=== PATIENT | female | born 1970 | race Caucasian/White ===

== ENCOUNTER 2020-03-13 11:22 | Emergency (ER) | payer BC, OTHER ==
[~2020-03-13] VITALS: Ht 170.2 cm; Wt 68.9 kg
[~2020-03-13 11:22] MED LIST: GLUCOPHAGE500 MG PO; LAMICTAL100 MG PO; LEXAPRO PO; METOPROLOL TART25 MG PO
--- OUTSIDE RECORDS SUMMARY | 2020-03-13 12:07 | XMS REPORT | Continuity of Care Document ---
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 Phone [employer] Unavailable Un available Problems Problem Status Onset Date Classification Date Reported Comments Source Other specified disorders of bone, other site 05/03/2018 11/14/2018 [facility] DX: FRONTAL HAIRLINE NODULE Ac tive 04/21/2018 [facility] Unilateral primary osteoarthritis, right knee 06/25/2017 09/28/2017 [facility] [place] RIGHT KNEE Active 03/03/2017 [facility] [place] UNK Active 0 02/25/2017 [facility] ACUTE MENISCAL TEAR, MEDIAL Ac tive 12/17/2011 [facility] Stiffness of right knee, not elsewhere classified 09/28/2017 [facility] [place] Pain in right knee 09/28/2017 [facility] [place] Muscle weakness (generalized) 09/28/2017 [facility] [place] Unspecified abnormalities of gait and mobility 09/28/2017 [facility] [place] Unsteadiness on feet 09/28/2017 [facility] Chondromalacia patellae, right knee 09/28/2017 [facility] [place] Anxiety (finding) Active Problem 11/14/2018 [facility] [place] Gastroesophageal reflux disease (disorder) Active Problem 11/14/2018 [facility] [place] Depressive disorder (disorder) Active Problem 04/2019 [facility] [place] Medications Medication Details Route Status Patient Instructions Ordering Provider Order Date Source Ketorolac 15 mg, Route: IVP, Q 6H, Dosing Weight 66.364, kg, Start date: 03/03/17 18:00:00 CDT, Duration: 6 doses or times, Stop date: 03/05/17 0:00:00 CDT Inactive 03/03/2017 [facility] Oxycodone Hydrochloride 5 MG Oral Tablet 10 mg, Route: PO, Drug form: TAB, ONCE, Dosing Weight 66.364, kg, PRN Pain Score 7-10, Start date: 03/03/17 14:00:00 CDT Inactive 03/03/2017 [facility] Oxycodone Hydrochloride 5 MG Oral Tablet 10 mg, Route: PO, Drug form: TAB, ONCE, Dosing Weight 66.364, kg, PRN Pain Score 7-10, Start date: 03/03/17 13:44:00 CDT Inactive 03/03/2017 [facility] Phenergan 12.5 mg, Route: IVPB , Q4H, Dosing Weight 66.364, kg, PRN Nausea & Vomiting, Start date: 03/03/17 12:02:00 CDT, Duration: 30 day, Stop date: 04/02/17 12:01:00 CDT Inactive 03/03/2017 [facility] Hydromorphone 0.3 mg, Route: I RADIOLOGY SUPERVISOR, Q3H, Dosing Weight 66.364, kg, PRN Pain Score 4-6, Start date: 03/03/17 12:02:00 CDT, Duration: 30 day, Stop date: 04/02/17 12:01:00 CDT Inactive 03/03/2017 [facility] Morphine 2 mg, Route: IVP, Q3H , Dosing Weight 66.364, kg, PRN Pain Score 1-3, Start date: 03/03/17 12:02:00 CDT, Duration: 30 day, Stop date: 04/02/17 12:01:00 CDT Inactive 03/03/2017 [facility] Acetaminophen 325 MG / Hydrocodone Jeremiah trate 5 MG Oral Tablet Route: PO, Dosing Weight 66.364, kg, Q4H , PRN Pain Score 4-6, Start date: 03/03/17 12:02:00 CDT, Duration: 30 day, Stop date: 04/02/17 12:01:00 CDT Inactive 03/03/2017 [facility] Tramadol 50 mg, Route: PO, Torin g form: TAB, Q6H, Dosing Weight 66.364, kg, PRN Pain Score 1-3, Start date: 03/03/17 12:02:00 CDT, Duration: 30 day, Stop date: 04/02/17 12:01:00 CDT Inactive 03/03/2017 [facility] 72 HR Scopolamine 0.0139 MG/HR Transdermal Patch 1 patch, Route: TOP, Drug Form: ERFILM, Dosing Weight 66.364, kg, PRE OP, Start date: 03/03/17 11:00:00 CDT, Duration: 30 day, Stop date: 04/02/17 10:59:00 CDT Inactive 03/03/2017 [facility] Albuterol 0.833 MG/ML / Ipratropium Brom nuno 0.167 MG/ML Inhalant Solution 3 mL, Route: NEB, Dosing Weight 66.364, kg, ONCE, STAT, Start date: 03/03/17 10:03:00 CDT, Stop date: 03/03/17 10:03:00 CDT Inactive 03/03/2017 [facility] Calcium Chloride 0.0014 MEQ/ML / Potassi um Chloride 0.004 MEQ/ML / Sodium Chloride 0.103 MEQ/ML / Sodium Lactate 0.028 MEQ/ML Injectable Solution 1,000 mL, Rate: 25 ml/hr, Infuse over: 4 0 hr, Route: IV, Dosing Weight 66.364 kg, Total Volume: 1,000, Start date: 03/03/17 10:03:00 CDT, Duration: 30 day, Stop date: 04/02/17 10:02:00 CDT Inactive 03/03/2017 [facility] clindamycin 300 mg oral capsule 600 mg = 2 cap, PO, TID, X 14 day, # 84 cap, 0 Refill(s) Active 03/03/2017 [facility] Sucralfate 100 MG/ML Oral Suspension [Carafate] 1 gm = 10 mL, PO, QID-Before Meals, 0 Refill(s) Active 03/02/2017 [facility] Metformin hydrochloride 1000 MG Oral Tablet 1,000 mg = 1 tab, PO, BID, 0 Refill(s) Active 03/02/2017 [facility] lamotrigine 100 MG Oral Tablet [Lamictal] 100 mg = 1 tab, PO, BID, 0 Refill(s) Active 03/02/2017 [facility] rOPINIRole 4 mg oral tablet 4 mg = 1 tab, PO, Bedtime, 0 Refill(s) Active 03/02/2017 [facility] Acyclovir 400 MG Oral Tablet [Zovirax] 400 mg = 1 tab, PO, Daily, 0 Refill(s) Active 03/02/2017 [facility] Escitalopram 20 MG Oral Tablet [Lexapro] 40 mg = 2 tab, PO, Daily, 0 Refill(s) Active 03/02/2017 [facility] Allergies, Adverse Reactions, Alerts Substance Category Reaction Severity Reaction type Status Date Reported Comments Source penicillins Assertion Drug allergy Active [facility] codeine Assertion Drug allergy Active [facility] Immunizations No Data Provided for This Section Results Order Name Results Value Reference Range Date Interpretation Comments Source ELECTROLYTES AGAP 11.3 10.0 - 20.0 03/02/2017 [facility] ELECTROLYTES eGFR 105 03/02/2017 Result Comment: The eGFR is calculated using the CKD-EPI formula. In most young, healthy individuals the eGFR will be >90 mL/min/1.73m2. The eGFR declines with age. An eGFR of 60-89 may be normal in some populations, particularly the elderly, for whom the CKD-EPI formula has not been extensively validated. Use of the eGFR is not recommended in the following populations:

Individuals with unstable creatinine concentrations, including patients and those with serious co-morbid conditions.

Patients with extremes in muscle mass or diet.

The data above are obtained from the National Kidney Disease Education Program (NKDEP) which additionally recommends that when the eGFR is used in patients with extremes of body mass index for purposes of drug dosing, the eGFR should be multiplied by the estimated BMI. [facility] ELECTROLYTES Chloride Lvl 107 95 - 109 03/02/2017 [facility] ELECTROLYTES Potassium Lvl 4.3 3.5 - 5.1 03/02/2017 [facility] ELECTROLYTES CO2 30 24 - 32 03/02/2017 [facility] ELECTROLYTES Calcium Lvl 9.2 8.5 - 10.5 03/02/2017 [facility] ELECTROLYTES BUN 19 7 - 22 03/02/2017 [facility] ELECTROLYTES Glucose Lvl 117 70 - 99 03/02/2017 [facility] ELECTROLYTES Sodium Lvl 144 135 - 145 03/02/2017 [facility] ELECTROLYTES Creatinine Lvl 0.7 0 0.50 - 1.40 03/02/2017 [facility] HEMATOLOGY MPV 7.4 7.4 - 10.4 03/02/2017 [facility] HEMATOLOGY Platelet 316 133 - 450 03/02/2017 [facility] HEMATOLOGY MCH 29.6 27.0 - 31.0 03/02/2017 [facility] HEMATOLOGY RDW 17.2 11.5 - 14.5 03/02/2017 [facility] HEMATOLOGY MCHC 32.7 32.0 - 36.0 03/02/2017 [facility] MCV 90.5 80.0 - 98.0 03/02/2017 [facility] Hct 35.9 36.0 - 48.0 03/02/2017 [facility] Hgb 11.7 12.0 - 16.0 03/02/2017 [facility] RBC 3.97 4.20 - 5.40 03/02/2017 [facility] WBC 6.2 3.7 - 10.4 03/02/2017 [facility] Eosinophils # 0.2 0.0 - 0.5 03/02/2017 [facility] HEMATOLOGY Basophils 0.7 0.0 - 1.0 03/02/2017 [facility] Monocytes # 0.6 0.0 - 0.8 03/02/2017 [facility] Eosinophils 3.7 0.0 - 4.0 03/02/2017 [facility] Monocytes 9.2 2.0 - 12.0 03/02/2017 [facility] Lymphocytes # 2.1 1.0 - 5.5 03/02/2017 [facility] Segs-Bands # 3.2 1.5 - 8.1 03/02/2017 [facility] Lymphocytes 34.4 20.0 - 40.0 03/02/2017 [facility] Segs 52.0 45.0 - 75.0 03/02/2017 [facility] Pathology Reports No Data Provided for This Section Diagnostic Reports Report Value Date Source Brain wo contrast CT Clinical Indication: - rt fontal hairline nodule r/o osteoma vs cyst vs lipoma vs other History (specific to the exam):knot or mass on her forehead that the Dr. is checking to see what it is, biopsy was done on that area Comparison: No prior relevant comparison study available at this institution at this time. TECHNIQUE: CT images were obtained from the foramen magnum to the vertex without the use of intravenous contrast on a multidetector CT. Coronal and sagittal reconstructions were obtained. CT imaging performed at this location utilizes radiation dose optimization techniques which include one or more of the following: -Automated exposure control -Adjustment of the mA and/or kV accordin g to patient size -Use of iterative reconstruction Therasis ue CT Radiation Dose DLP 673 mGy-cm FINDINGS: BRAIN PARENCHYMA and VENTRICLES: There are no intra-axial or extra-axial fluid collections, intraventricular or intraparenchymal hemorrhage. There are no focal mass lesions on this noncontrast head CT. There is no mass effect, midline shift or edema. The muñoz-white matter differentiation is preserved. The midline structures appear unremarkable. The lateral ventricles, third and fourth ventricles appear unremarkable. The basilar cisterns are normal. Partially empty sella, a nonspecific finding. ORBITS, MASTOIDS AND PARANASAL SINUSES: The visualized orbits are unremarkable. The visualized paranasal sinuses and mastoid air cells are clear. SKULL: Tiny osseous protuberance along the outer table of the frontal bone in the right para-midline location at the marked site measuring approximately 2.5 x 7.5 x 7 mm likely represents an osteoma. No acute calvarial fracture or focal suspicious osseous lesions are identified. If there is further concern for intracranial pathology or acute stroke, MRI of the brain may be performed for complete assessment. IMPRESSION: No evidence of acute intracranial abnormality or calvarial fracture. Tiny osseous protuberance along the outer table of the frontal bone in the right para-midline location likely represents an osteoma. ----- STEPHY: GVIJLinda 04/26/2018 [facility] Consultation Notes No Data Provided for This Section Discharge Summaries No Data Provided for This Section History and Physicals No Data Provided for This Section Vital Signs Vital Sign Value Date Comments Source Systolic (mm Hg) 105 03/03/2017 [facility] Diastolic (mm Hg) 62 03/03/2017 [facility] Systolic (mm Hg) 112 03/03/2017 [facility] Diastolic (mm Hg) 65 03/03/2017 [facility] Systolic (mm Hg) 119 03/03/2017 [facility] Diastolic (mm Hg) 65 03/03/2017 [facility] Respitory Rate 8 03/03/2017 [facility] Respitory Rate 15 03/03/2017 [facility] Respitory Rate 7 03/03/2017 [facility] Heart Rate 82 03/03/2017 [facility] Temperature Oral (F) 98.2 F 03/02/2017 [facility] Heart Rate 82 03/02/2017 [facility] Weight 66.364 03/02/2017 [facility] BMI Calculated 26.76 03/02/2017 [facility] Height 157.48 cm 03/02/2017 [facility] Encounters Location Location Details Encounter Type Encounter Number Reason For Visit Attending Provider ADM Date DC Date Status Source [facility] Outpatient [id number] ACUTE MENISCAL TE AR, MEDIAL KHANG SAM 12/21/2011 Active [facility] [id number] Khang Sam 03/03/2017 03/03/2017 [facility] [place] [facility] [id number] Khang Sam 03/17/2017 04/16/2017 [facility] [place] [facility] [place] [facility] [id number] Khang Sam 04/21/2017 05/21/2017 [facility] [place] [facility] [place] [facility] [id number] Khang Sam 05/24/2017 06/23/2017 [facility] [place] [facility] Out[facility] [id number] Bulmaro Mcqueenikh 04/26/2018 04/27/2018 [facility] Procedures Procedure Code Date Perfomer Comments Source Cholecystectomy<sup>1</sup> [id number] [facility] [place] Colonoscopy<sup>2</sup> 190175 2015; 2016 [facility] [place] Esophagogastroduodenoscopy<sup>3</sup> [id number] 2015; 2016 [facility] [place] Oophorectomy<sup>4</sup> 42103 002 2001 [facility] [place] Operation<sup>5</sup> [id number] plate and screws; 2013 [facility] [place] Operation<sup>6</sup> [id number] 2000 [facility] [place] Operation<sup>7</sup> [id number] 2007 [facility] [place] Assessment and Plan No Data Provided for This Section Plan of Care No Data Provided for This Section Social History Social History Date Source Social History TypeResponse Substance Abuse Use: None. Alcohol Never Smoking Status Never smoker; Exposure to Tobacco Smoke None; Cigarette Smoking Last 365 Days No; Reg Smoking Cessation Counseling No entered on: 03/02/17 03/02/2017 [facility] [place] Social History TypeResponse Substance Abuse Use: None. Alcohol Never Smoking Status Never smoker; Exposure to Tobacco Smoke None; Cigarette Smoking Last 365 Days No; Reg Smoking Cessation Counseling No entered on: 03/02/17 03/02/2017 [facility] Family History No Data Provided for This Section Advance Directives No Data Provided for This Section Functional Status No Data Provided for This Section
--- OUTSIDE RECORDS SUMMARY | 2020-03-13 12:07 | XMS REPORT | Continuity of Care Document ---
Author Author [facility] Organization [facility] Address [address] [place] [address] Phone Unavailable Care Team Providers Care Sewer Line Repairer Name Role Phone Holcomb, Raankitasimon Bulmaro Attphys Caleb Man Attphys Payers Payer Name Policy Type Policy Number Effective Date Expiration Date S ource Problems Condition Name Condition Details Condition Category Status Onset Date Resolution Date Last Treatment Date Treating Clinician Comments Source DX: FRONTAL HAIRLINE NODULE DX : FRONTAL HAIRLINE NODULE Active 04/21/2018 [facility] Active 2018-04-21 00:00:00 2018-04-26 13:02:00 Ela Del Castillo RIGHT KNEE RIGH T KNEE Active 03/03/2017 [facility] Active 2017-03-03 08:00:00 2017-05-24 17:24:00 Ela Del Castillo UNK UNK Active 02/25/2017 [facility] Active 2017-02-25 00:00:00 2017-03-03 09:23:00 M masonpremamee Del Castillo ACUTE MENISCAL TEAR, MEDIAL AC NATO MENISCAL TEAR, MEDIAL Active 12/17/2011 [facility] Diagnosis Active 2011-12-17 00:00:00 2011-12-21 18:47:00 [facility] Stiffness of right knee, not elsewhere classified Stiffness of right knee, not elsewhere classified 09/28/2017 [facility] [place] Problem 2017-09-28 14:23:44 [facility] Pain in right knee Pain in right knee 09/28/2017 [facility] Problem 2017-09-28 14:23:44 [facility] Muscle weakness (generalized) Muscle weakness (generalized) 09/28/2017 [facility] Problem 2017-09 14:23:44 [facility] Unspecified abnormalities of gait and mobility Unspecified abnormalities of gait and mobility 09/28/2017 [facility] Problem 2017-09-28 14:23:44 [facility] Unsteadiness on feet Unst eadiness on feet 09/28/2017 [facility] Problem 2017-09-28 14:23:44 [facility] Chondromalacia patellae, right knee Chondromalacia patellae, right knee 09/28/2017 [facility] [place] Problem 2017-09-28 14:23:44 [facility] Anxiety (finding) Anxi ety (finding) Active Problem 11/14/2018 [facility] [place] Problem Active 2018-11-14 11:1 3:22 [facility] Gastroesophageal reflux disease (disorder) Gastroesophageal reflux disease (disorder) Active Problem [facility]14[facility]2018 [facility] Active 2018-11-14 11:13:22 [facility] Depressive disorder (disorder) Depressive disorder (disorder) Active Problem 11/14/2018 [facility] Active 2018-11-14 11:13:22 [facility] Other specified disorders of bone, other site Other specified disorders of bone, other site 05/03/2018 11/14/2018 [facility] Problem 2018-05-03 04:19:57 2018-11-14 11:13:22 2018-11-14 11:13:22 [facility] Unilateral primary osteoarthritis, right knee Unilateral primary osteoarthritis, right knee 06/25/2017 09/28/2017 [facility] Problem 2017-06-25 05:59:29 2017-09-28 14:23:44 2017-09-28 14:23:44 Ela Del Castillo Allergies, Adverse Reactions, Alerts Allergy Name Allergy Type Status Severity Reaction(s) Onset Date Inacti ve Date Treating Clinician Comments Source codeine DA Active SV 2018-02-23 00:00:00 [facility] codeine DA Active SV 2018-02-17 00:00:00 [facility] codeine DA Active SV 2015-06-17 00:00:00 [facility] EGGS DA Active U 2008-04-29 00:00:00 [facility] MILK DA Active U 2008-04-29 00:00:00 [facility] No Known Contrast Allergies DA Active U 2008-04-29 00:00: 00 [facility] WHEAT DA Active U 2008-04-29 00:00:00 [facility] CODEINE DA Active U 2008-04-29 00:00:00 [facility] penicillins penicillins Active Ela Del Castillo codeine codeine Active Ela Del Castillo Social History Social Habit Start Date Stop Date Quantity Comments Source Social History 2017-03-02 13:31:10 2017-03-02 13:31:10 Ela Del Castillo Medications Ordered Medication Name Filled Medication Name Start Date Stop Da te Current Medication? Ordering Clinician Indication Dosage Frequency Signature (SIG) Comments Components Source Ketorolac 2017-03-03 23:00:00 No 15 mg, Route: IVP, Q6H, Dosing Weight 66.364, kg, Start date: 03/03/17 18:00:00 CDT, Duration: 6 doses or times, Stop date: 03/05/17 0:00:00 CDT M masonriamee Del Castillo Oxycodone Hydrochloride 5 MG Oral Tablet 2017-03-03 19:00:00 No 10 mg, Route: PO, Drug form: TAB, ONCE, Dosing Weight 66.364, kg, PRN Pain Score 7- 10, Start date: 03/03/17 14:00:00 CDT moriamee Del Castillo Oxycodone Hydrochloride 5 MG Oral Tablet 2017-03-03 18:44:00 No 10 mg, Route: PO, Drug form: TAB, ONCE, Dosing Weight 66.364, kg, PRN Pain Score 7- 10, Start date: 03/03/17 13:44:00 CDT De yani Del Castillo Phenergan 2017-03-03 17:02:00 No 12.5 mg, Route: IVPB, Q4H, Dosing Weight 66.364, kg, PRN Nausea & Vomiting, Start date: 03/03/17 12:02:00 CDT, Duration: 30 day, Stop date: 04/02/17 12:01:00 CDT [facility] Hydromorphone 2017-03-03 17:02:00 No 0.3 mg, Route: IVP, Q3H, Dosing Weight 66.364, kg, PRN Pain Score 4-6, Start date: 03/03/17 12:02:00 CDT, Duration: 30 day, Stop date: 04/02/17 12:01:00 CDT [facility] Morphine 2017-03-03 17:02:00 No 2 mg, Route: IVP, Q3H, Dosing Weight 66.364, kg, PRN Pain Score 1-3, Start date: 03/03/17 12:02:00 CDT, Duration: 30 day, Stop date: 04/02/17 12:01:00 CDT [facility] [address] Acetaminophen 325 MG / Hydrocodone Bitartrate 5 MG Oral Tabl et 2017-03-03 17:02:00 No Route: PO, Dosing Weight 66.364, kg, Q4H, PRN Pain Score 4-6, Start date: 03/03/17 12:02:00 CDT, Duration: 30 day, Stop date: 04/02/17 12:01:00 CDT [facility] Tramadol 2017-03-03 17:02:00 No 50 mg, Route: PO, Drug form: TAB, Q6H, Dosing Weight 66.364, kg, PRN Pain Score 1-3, Start date: 03/03/17 12:02:00 CDT, Duration: 30 day, Stop date: 04/02/17 12:01:00 CDT [facility] 72 HR Scopolamine 0.0139 MG/HR Transdermal Patch 2017-03-03 16:0 0:00 No 1 patch, Route: TOP, Drug Fo rm: ERFILM, Dosing Weight 66.364, kg, PRE OP, Start date: 03/03/17 11:00:00 CDT, Duration: 30 day, Stop date: 04/02/17 10:59:00 CDT Ela Del Castillo Albuterol 0.833 MG/ML / Ipratropium [place] 0.167 MG/ML Inha lant Solution 2017-03-03 15:03:00 Yes 3 mL, Route: NEB, Dosing Weight 66.364, kg, ONCE, STAT, Start date: 03/03/17 10:03:00 CDT, Stop date: 03/03/17 10:03:00 CDT Ela Del Castillo Calcium Chloride 0.0014 MEQ/ML / Potassi um Chloride 0.004 MEQ/ML / Sodium Chloride 0.103 MEQ/ML / Sodium Lactate 0.028 MEQ/ML Injectable Solution 2017-03-03 15:03:00 No 1,000 mL, Rate: 25 ml/hr, Infuse over: 40 hr, Route: IV, Dosing Weight 66.364 kg, Total Volume: 1,000, Start date: 03/03/17 10:03:00 CDT, Duration: 30 day, Stop date: 04/02/17 10:02:00 CDT Ela Del Castillo clindamycin 300 mg oral capsule 2017-03-03 02:35:00 Yes 600 mg = 2 cap, PO, TID, X 14 day, # 84 cap, 0 Refill(s) Ela Del Castillo Sucralfate 100 MG/ML Oral Suspension [Carafate] 2017-03-02 13:36 :00 Yes 1 gm = 10 mL, PO, QID-Before Meals, 0 Refill(s) Ela Del Castillo Metformin hydrochloride 1000 MG Oral Tablet 2017-03-02 13:36:00 Yes 1,000 mg = 1 tab, PO, BID, 0 Refill(s) Simon emoriamee Del Castillo lamotrigine 100 MG Oral Tablet [Lamictal] 2017-03-02 13:35:00 Yes 100 mg = 1 tab, PO, BID, 0 Refill(s) Kyle oriamee Del Castillo rOPINIRole 4 mg oral tablet 2017-03-02 13:35:00 Yes 4 mg = 1 tab, PO, Bedtime, 0 Refill(s) Ela caldwell Acyclovir 400 MG Oral Tablet [Zovirax] 2017-03-02 13:35:00 Yes 400 mg = 1 tab, PO, Daily, 0 Refill(s) [facility] Escitalopram 20 MG Oral Tablet [Lexapro] 2017-03-02 13:34:00 Yes 40 mg = 2 tab, PO, Daily, 0 Refill(s) [facility] Vital Signs Vital Name Observation Time Observation Value Comments Source Systolic (mm Hg) 2017-03-03 19:45:00 [facility] [place] Diastolic (mm Hg) 2017-03-03 19:45:00 [facility] [place] Systolic (mm Hg) 2017-03-03 18:30:00 [facility] [place] Diastolic (mm Hg) 2017-03-03 18:30:00 [facility] [place] Systolic (mm Hg) 2017-03-03 18:15:00 [facility] [place] Diastolic (mm Hg) 2017-03-03 18:15:00 [facility] [place] Respitory Rate 2017-03-03 18:15:00 [facility] [place] Respitory Rate 2017-03-03 18:00:00 [facility] [place] Respitory Rate 2017-03-03 17:45:00 [facility] [place] Heart Rate 2017-03-03 15:06:00 [facility] Temperature Oral (F) 2017-03-02 13:19:00 98.2 F [facility] Heart Rate 2017-03-02 13:19:00 [facility] Weight 2017-03-02 13:13:00 [facility] BMI Calculated 2017-03-02 13:13:00 [facility] [place] Height 2017-03-02 13:13:00 157.48 cm [facility] [place] Procedures Procedure Date / Time Performed Performing Clinician Sour e Cholecystectomy<sup>1</sup> [facility] Colonoscopy<sup>2</sup> [facility] Esophagogastroduodenoscopy<sup>3</sup> [facility] Oophorectomy<sup>4</sup> [facility] [place] Operation<sup>5</sup> [facility] Encounters Start Date/Time End Date/Time Encounter Type Admission Type Attendi [facility] Care Department Encounter ID Source 2018-04-26 12:55:00 2018-04-26 23:59:00 Outpatient Tatianna Holcomb [facility] [id number] 2017-05-24 08:00:00 2017-06-22 23:59:00 Outpatient Man, Tyler jcjose manuel Ellis [id number] 2017-04-21 12:00:00 2017-05-20 23:59:00 Outpatient Tyler Manjose manuel Caleb [id number] 2017-03-17 08:00:00 2017-04-15 23:59:00 Outpatient Man, Tyler jcjose manuel Ellis [id number] 2017-03-03 09:20:00 2017-03-03 14:55:00 Outpatient Khang Man [facility] [id number] Results Test Description Test Time Test Comments Results Result Comments Source SCR MAMM BILATERAL YULIYA CAD DIGITAL 2019-04-26 10:53:31 - SCR MAMM BILATERAL YULIYA CAD DIGITALBILATERAL DIGITAL SCREENING MAMMOGRAM 3D/2D WITH CAD: 04/26/2019CLINICAL: Asymptomatic. Digital breast tomosynthesis was performed in addition to routine CC and MLO views. Current mammographic images were evaluated by either a [employer] M-Vu or a [employer] ImageChecker CAD (computer aided detection system). Comparison is made to exams dated 04/20/2018 mammogram - [facility], 04/08/2017 mammogram, and 04/20/2016 mammogram - [facility]. The tissue of both breasts is predominantly fatty. There is a biopsy clip in the left breast. No suspicious mass, architectural distortion, malignant type calcification, or lymph node abnormality detected. Breast architecture is stable compared to prior exams.IMPRESSION: BENIGNThere is no mammographic evidence of malignancy. Resume annual screening mammography in one year. Christopher maldonado/penkaur:04/26/2019 10:53:31 Sanitation Supervisor: Ami Oliver FW, [facility] sent: BIRADS 1-2 Normal Mammogram BI-RADS: 2 Benign SCR MAMM BILATERAL YULIYA CAD DIGITAL 2018-04-20 10:46:27 - SCR MAMM BILATERAL YULIYA CAD DIGITALBILATERAL DIGITAL SCREENING MAMMOGRAM 3D/2D WITH CAD: 04/20/2018CLINICAL: Asymptomatic. Digital breast tomosynthesis was performed in addition to routine CC and MLO views. Current mammographic images were evaluated by either a [employer] M-Vu or a [employer] ImageChecker CAD (computer aided detection system). Comparison is made to exams dated 04/08/2017 mammogram, mammogram, and 03/15/2015 mammogram - [facility] The tissue of both breasts is predominantly fatty. There is a biopsy clip in the left breast. No suspicious mass, architectural distortion, malignant type calcification, or lymph node abnormality detected. Breast architecture is stable compared to prior exams.IMPRESSION: NEGATIVEThere is no mammographic evidence of malignancy. Resume annual screening mammography in one year. Jonny gresham/gerard:04/20/2018 10:46:27 Entry: - 04/25/2018 11:27:28Imaging Technologist: Mandie Ham, [facility] sent: BIRADS 1-2 Normal Mammogram BI-RADS: 1 Negative ELECTROLYTES 2017-03-02 13:58:00 11.3 [facility] [place] ELECTROLYTES 2017-03-02 13:58:00 105 [facility] [place] ELECTROLYTES 2017-03-02 13:58:00 107 [facility] [place] ELECTROLYTES 2017-03-02 13:58:00 4.3 [facility] [place] ELECTROLYTES 2017-03-02 13:58:00 30 [facility] [place] ELECTROLYTES 2017-03-02 13:58:00 9.2 [facility] [place] ELECTROLYTES 2017-03-02 13:58:00 19 [facility] [place] ELECTROLYTES 2017-03-02 13:58:00 117 [facility] ELECTROLYTES 2017-03-02 13:58:00 144 [facility] [place] ELECTROLYTES 2017-03-02 13:58:00 0.70 [facility] [place] HEMATOLOGY 2017-03-02 13:58:00 7.4 [facility] HEMATOLOGY 2017-03-02 13:58:00 316 [facility] [place] HEMATOLOGY 2017-03-02 13:58:00 Test Item MCH (test code = MCH) 29.6 pg 27.0-31.0 [facility] [id number] 13:58:0017.2[facility] 2017-03-02 13:58:0032.7[facility] NjgdkzbFIQCFJQZHT8860-82-95 13:58:0090.5[facility] KphebquWZLYHGASJG6979-68-92 13:58:0035.9[facility] PwxvbcqIWGIIAOXDI2158-28-00 13:58:0011.7[facility] SgixjlwCGIQEJJCUW0717-36-73 13:58:003.97[facility] [id number] 13:58:006.2[facility] ChodocxRSNWBSOOTI3131-88-40 13:58:000.2 [facility] [id number] 13:58:000.7[facility]ann[facility] 2017-03-02 13:58:000.6[facility] AtfuwxnTMIIYMBIFV8638-76-39 13:58:003.7[facility] SxnwmppLFMZIOOURS7694-44-73 13:58:009.2[facility] TowuwozGFTOAABNHT1008-94-45 13:58:002.1[facility] ByluhkoFVGPNZJQMD4788-84-71 13:58:003.2[facility] [id number] 13:58:0034.4[facility] RkttfirKJEDQTHDYQ7002-32-28 13:58:00 52.0[facility]
[2020-03-13] MEDS ORDERED: ACETAMINOPHEN 325 MG TAB PO NR (12:15)
[2020-03-13] MEDS ORDERED: KETOROLAC TROMETHAMINE 30 MG/ML VIAL IV NR (12:15)
[2020-03-13] MEDS ORDERED: SODIUM CHLORIDE 0.9% 1000ML 1,000 ML IV SCH (12:15)
--- NOTE | 2020-03-13 13:12 | Emergency Department Note ---
History of Present Illnes History of Present Illness Chief Complaint: General Medicine Complaints History of Present Illness This is a 49 year old female Chief Complaint Comment pt came in via POV for c/o body aches, chills, diarrhea and fever of 102, pt states that she was never directly in contact with COVID+ patients at her workplace and was tested at her job before but her results were never given to her, onset of symptoms were last night, pt received flu vaccine for this season. 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 Any updates have been documented here. Past Medical History Recent Fever: Yes Clinical Suspicion of Infectio: Yes New/Unexplained Change in Ment: No Past Medical History: Diabetes, Anemia Past Surgical History: Knee Replacement Review of Systems Review of Systems Constitutional: Reports as per HPI, Reports fever, Reports malaise EENTM: Reports no symptoms Cardiovascular: Reports no symptoms Respiratory: Reports no symptoms Gastrointestinal: Reports no symptoms Genitourinary: Reports no symptoms Musculoskeletal: Reports joint pain, Reports muscle pain Integumentary: Reports no symptoms Neurological: Reports no symptoms Psychological: Reports no symptoms Endocrine: Reports no symptoms Hematological/Lymphatic: Reports no symptoms Physical Exam Related Data Allergies: Coded Allergies: Penicillins (Verified Allergy, Unknown, 09/19/13) codeine (Verified Allergy, Unknown, 09/19/13) Triage Vital Signs Vital Signs Date Time Temp Pulse Resp B/P (MAP) Pulse Ox O2 Delivery O2 Flow Rate FiO2 03/13/20 11:57 98.5 82 18 111/57 99 Room Air Vital signs reviewed: Yes Physical Exam CONSTITUTIONAL Constitutional: Present well-developed, Present well-nourished HENT HENT: Present normocephalic, Present atraumatic, Present oropharynx clear/moist, Present nose normal HENT L/R: Present left ext ear normal, Present right ext ear normal EYES Eyes: Reports PERRL, Reports conjunctivae normal NECK Neck: Present ROM normal PULMONARY Pulmonary: Present effort normal, Present breath sounds normal CARDIOVASCULAR Cardiovascular: Present regular rhythm, Present heart sounds normal, Present capillary refill normal, Present normal rate GASTROINTESTINAL Abdominal: Present soft, Present nontender, Present bowel sounds normal GENITOURINARY Genitourinary: Present exam deferred SKIN Skin: Present warm, Present dry MUSCULOSKELETAL Musculoskeletal: Present ROM normal NEUROLOGICAL Neurological: Present alert, Present oriented x 3, Present no gross motor or sensory deficits PSYCHOLOGICAL Psychological: Present mood/affect normal, Present judgement normal Results Laboratory Lab results reviewed: Yes Imaging Imaging results reviewed: Yes Assessment & Plan Medical Decision Making MDM 49-year-old female presents for generalized body aches and fever. Initial differential includes influenza versus COVID versus other upper respiratory infection among others. Examination shows an overall well-appearing female in no acute distress, vital signs stable, within normal limits. Diagnosis favors viral etiology and will treat as presumed coronavirus. Instructed patient on an expectorant disease time course and management as well as return precautions. Patient is appropriate for discharge. Reassessment Reassessment time: 13:11 Reassessment Well appearing, NAD Assessment & Plan Final Impression: (1) Suspected 2019 novel coronavirus infection Depart Disposition: HOME, SELF-CARE Last Vital Signs Date Time Temp Pulse Resp B/P (MAP) Pulse Ox O2 Delivery O2 Flow Rate FiO2 03/13/20 12:00 88 18 118/74 99 Room Air 03/13/20 11:57 98.5 Home Meds Reported Medications Metoprolol Tartrate (METOPROLOL TARTRATE) 25 Mg Tablet, 25 MG PO BID 09/19/13 Lamotrigine (LAMICTAL) 100 Mg Tab, 100 MG PO DAILY 09/19/13 [Lexapro] No Conflict Check, 40 MG PO DAILY 09/19/13 Metformin Hcl (GLUCOPHAGE) 500 Mg Tablet, 500 MG PO BID 09/19/13 Medications in the ED Sodium Chloride 1,000 ml @ 250 mls/hr Q4H IV Last administered on 03/13/20at 12:11; Admin Dose 250 MLS/HR; Start 03/13/20 at 12:15; Stop 04/12/20 at 12:14 Acetaminophen 975 mg ONCE PO Last administered on 03/13/20at 12:40; Admin Dose 975 MG; Start 03/13/20 at 12:15; Stop 03/13/20 at 13:59 Ketorolac Tromethamine 15 mg ONCE IV Last administered on 03/13/20at 12:39; Admin Dose 15 MG; Start 03/13/20 at 12:15; Stop 03/13/20 at 13:59 ADINA GROVER MD Mar 13, 2020 13:12
--- NOTE | 2020-03-13 13:37 | Diagnostic Imaging Report ---
Right knee, 3 views INDICATION: ^Y ^R knee pain Comparison: None available. Discussion: Multiple views of the right knee demonstrate postoperative changes from 2 part cemented right knee arthroplasty. Patellofemoral spacer is noted. Question small suprapatellar joint effusion. Anatomic alignment of the arthroplasty is noted. Adjacent osseous structures are negative for grossly displaced fracture or dislocation. IMPRESSION: Postoperative changes from right knee arthroplasty. No evidence of hardware malfunction. Small suprapatellar joint effusion is noted, nonspecific. Signed by: Ollie Lewis MD on 03/13/2020 1:33 PM
[2020-03-13 14:09] VITALS: BP 111/67
== END 2020-03-13 14:10 | disposition home or self-care (01) ==
LOC: ER 12:05
DX: R50.9 Fever, unspecified (principal); E11.9 Type 2 diabetes mellitus without complications; D64.9 Anemia, unspecified; Z11.59 Encounter for screening for other viral diseases
CPT/HCPCS: 73562; 99284; J1885; J7030; U0002

== ENCOUNTER 2020-03-19 16:41 | Inpatient (IN) | payer BC ==
[~2020-03-19] VITALS: Ht 170.2 cm; Wt 68.9 kg
--- NOTE | 2020-03-19 16:48 | Emergency Department Note ---
History of Present Illnes History of Present Illness Chief Complaint: Abdominal Complaints History of Present Illness This is a 49 year old female with 4 day h/o of melanotic stool. H/O of ulcers 2017. Historian: Patient Onset (how long ago): day(s) Radiation: Reports non-radiation Severity: moderate Duration (how long): day(s) (4) Timing of current episode: constant Progression: worsening Context: Denies recent illness, Denies recent surgery, Denies recent immobilization, Denies recent travel, Denies trauma/injury, Denies new medications, Denies hx of DVT/PE, Denies non-compliance w/ medications, Denies other Relieving factors: none Exacerbating factors: none Associated symptoms: Reports weakness Treatments prior to arrival: none Previous service: tests performed, re-evaluation Past Medical/Family History Physician Review I have reviewed the patient's past medical and family history. Any updates have been documented here. Past Medical History Recent Fever: No Clinical Suspicion of Infectio: No New/Unexplained Change in Ment: No Past Medical History: Diabetes, Anemia Past Surgical History: Knee Replacement Other Surgery: EGD Social History Smoking Cessation: Never Smoker Alcohol Use: None Any Illegal Drug Use: No Review of Systems Review of Systems Constitutional: Reports weakness EENTM: Reports no symptoms Cardiovascular: Reports no symptoms Respiratory: Reports no symptoms Gastrointestinal: Reports no symptoms Genitourinary: Reports no symptoms Musculoskeletal: Reports no symptoms Integumentary: Reports no symptoms Neurological: Reports no symptoms Psychological: Reports no symptoms Endocrine: Reports no symptoms Hematological/Lymphatic: Reports no symptoms Physical Exam Related Data Allergies: Coded Allergies: No Known Allergies (Unverified , 03/19/20) Triage Vital Signs Vital Signs Date Time Temp Pulse Resp B/P (MAP) Pulse Ox O2 Delivery O2 Flow Rate FiO2 03/19/20 16:46 98.6 80 16 154/81 100 Room Air 03/20/20 11:12 6 Vital signs reviewed: Yes Physical Exam CONSTITUTIONAL Constitutional: Present well-developed, Present well-nourished HENT HENT: Present normocephalic, Present atraumatic, Present oropharynx clear/moist, Present nose normal HENT L/R: Present left ext ear normal, Present right ext ear normal EYES Eyes: Reports PERRL, Reports conjunctivae normal NECK Neck: Present ROM normal PULMONARY Pulmonary: Present effort normal, Present breath sounds normal CARDIOVASCULAR Cardiovascular: Present regular rhythm, Present heart sounds normal, Present c apillary refill normal, Present normal rate GASTROINTESTINAL Abdominal: Present soft, Present nontender, Present bowel sounds normal GENITOURINARY Genitourinary: Present exam deferred SKIN Skin: Present dry, Present pale MUSCULOSKELETAL Musculoskeletal: Present ROM normal NEUROLOGICAL Neurological: Present alert, Present oriented x 3, Present no gross motor or sensory deficits PSYCHOLOGICAL Psychological: Present mood/affect normal, Present judgement normal Assessment & Plan Medical Decision Making MDM Diff Dx : GIB, varices, diverticulitis, ischemic blood ,hemorrhoids Assessment & Plan Final Impression: (1) GIB (gastrointestinal bleeding) (2) Anemia Home Meds Reported Medications Acyclovir (ACYCLOVIR) 200 Mg Capsule, 400 MG PO DAILY, #30 CAP 03/19/20 Escitalopram Oxalate (LEXAPRO) 20 Mg Tablet, 40 MG PO DAILY, TAB 03/19/20 Ropinirole Hcl (ROPINIROLE HCL) 1 Mg Tablet, 8 MG PO DAILY, #30 TAB 03/19/20 Simvastatin (SIMVASTATIN) 20 Mg Tablet, 20 MG PO 2100, EA 03/19/20 Ergocalciferol (Vitamin D2) (Vitamin D2) 50 Mcg Tablet, 90694 UNITS PO 03/19/20 Clonazepam (CLONAZEPAM) 1 Mg Tablet, 1 MG PO HS, TAB 03/19/20 Amoxicillin/Potassium Clav (AUGMENTIN 875-125 TABLET) 1 Each Tablet, 875 MG PO Q4HR, #30 TAB 03/19/20 Metoprolol Tartrate (METOPROLOL TARTRATE) 25 Mg Tablet, 25 MG PO BID 09/19/13 Lamotrigine (LAMICTAL) 100 Mg Tab, 200 MG PO DAILY 09/19/13 Metformin Hcl (GLUCOPHAGE) 500 Mg Tablet, 1000 MG PO BID 09/19/13 Discontinued Reported Medications Ciprofloxacin Hcl (CIPROFLOXACIN HCL) 250 Mg Tablet, 250 MG PO Q4HR 03/19/20 Ibuprofen (IBUPROFEN) 400 Mg Tablet, 600 MG PO Q6H, TAB 03/19/20 [Lexapro] No Conflict Check, 40 MG PO DAILY 09/19/13 MELLISSA CHARLES DO Mar 19, 2020 16:48
[2020-03-19 17:08] LABS: BASOPHILS % 0.4 % (0.0-1.0); EOSINOPHILS # (AUTO) 0.1 (0.0-0.4); LYMPHOCYTES # (AUTO) 1.3 (1.0-3.2); LYMPHOCYTES % 24.5 % (18.0-39.1); MEAN CORPUSCULAR HEMOGLOBIN 20.4 pg (28-32); MEAN CORPUSCULAR HGB CONC 27.2 g/dL (31-35); MEAN CORPUSCULAR VOLUME 75.2 fL (81-99); MONOCYTES # (AUTO) 0.5 (0.2-0.8); MONOCYTES % 8.7 % (4.4-11.3); NEUTROPHILS # (AUTO) 3.5 (2.1-6.9); NEUTROPHILS % 63.8 % (38.7-80.0); PLATELET COUNT 281 x10e3/uL (140-360); RED BLOOD COUNT 2.74 x10e6/uL (3.6-5.1); RED CELL DISTRIBUTION WIDTH 18.8 % (11.7-14.4)
[2020-03-19 17:10] LABS: HEMATOCRIT 20.6 % (34.2-44.1); HEMOGLOBIN 5.6 g/dL (12.0-16.0)
[2020-03-19] MEDS ORDERED: MORPHINE SULFATE 2 MG/ML SYR 1ML IV PRN (17:15)
[2020-03-19] MEDS ORDERED: SODIUM CHLORIDE 0.9% 250ML 250 ML IV ONE (17:15)
[2020-03-19 17:18] LABS: BILIRUBIN,URINE NEGATIVE (NEGATIVE); CLARITY,URINE SL CLOUDY (CLEAR); COLOR,URINE YELLOW (YELLOW); KETONES,URINE NEGATIVE (NEGATIVE); LEUKOCYTE ESTERASE ,URINE NEGATIVE (NEGATIVE); NITRITE,URINE NEGATIVE (NEGATIVE); PROTEIN,URINE DIPSTICK NEGATIVE (NEGATIVE); URINE UROBILINOGEN 0.2 mg/dL (0.2 - 1)
[2020-03-19 17:19] LABS: PREGNANCY TEST, URINE NEGATIVE (NEGATIVE)
--- OUTSIDE RECORDS SUMMARY | 2020-03-19 17:28 | XMS REPORT | Continuity of Care Document ---
Author Author [facility] t Organization [facility] Address [address] [place] [address] Phone Unavailable Care Team Providers Care Child Care Name Role Phone DO WALLACE RAJAN PCP Natalio Hardwick Attphys Unavailable Rony Holcomb Attphys Caleb Man Attphys Payers Payer Name Policy Type Policy Number Effective Date Expiration Date S hans Amaro [facility] [id number] 2020 00:00:00 [facility] Problems Condition Name Condition Details Condition Category Status Onset Date Resolution Date Last Treatment Date Treating Clinician Comments Source DX: FRONTAL HAIRLINE NODULE DX : FRONTAL HAIRLINE NODULE Active 04/21/2018 [facility] Active 2018-04-21 00:00:00 2018-04-26 13:02:00 [facility] RIGHT KNEE RIGH T KNEE [facility] Active 2017-03-03 08:00:00 2017-05-24 17:24:00 [facility] 02/25/2017 [facility] Diagnosis Active 2017-02-25 00:00:00 2017-03-03 09:23:00 [facility] ACUTE MENISCAL TEAR, MEDIAL AC [place] DEE-NI' MENISCAL TEAR, MEDIAL Active 12/17/2011 [facility] Active 2011-12-17 00:00:00 2011-12-21 18:47:00 [facility] Suspected severe acute respiratory syndr ome coronavirus 2 (SARS-CoV-2) infection Problem Active [facility] Stiffness of right knee, not elsewhere classified Stiffness of right knee, not elsewhere classified 09/28/2017 [facility] [address] Problem 2017-09-28 14:23:44 [facility] Pain in right knee Pain in right knee 09/28/2017 [facility] [address] Problem 2017-09-28 14:23:44 [facility] Muscle weakness (generalized) Muscle weakness (generalized) 09/28/2017 [facility] [address] Problem 2017-09 14:23:44 [facility] Unspecified abnormalities of gait and mobility Unspecified abnormalities of gait and mobility 09/28/2017 [facility] [address] Problem 2017-09-28 14:23:44 [facility] Unsteadiness on feet Unst eadiness on feet 09/28/2017 [facility] [address] Problem 2017-09-28 14:23:44 [facility] Chondromalacia patellae, right knee Chondromalacia patellae, right knee 09/28/2017 [facility] [address] Problem 2017-09-28 14:23:44 [facility] Anxiety (finding) Anxi ety (finding) Active Problem 11/14/2018 [facility] [address] Problem Active 2018-11-14 11:1 3:22 [facility] Gastroesophageal reflux disease (disorder) Gastroesophageal reflux disease (disorder) Active Problem 11/14/[address] [facility] [address] Problem Active 2018-11-14 11:13:22 [facility] Depressive disorder (disorder) Depressive disorder (disorder) Active Problem 11/14/[address] [facility] [address] Problem Active 2018-11-14 11:13:22 Ela Del Castillo Other specified disorders of bone, other site Other specified disorders of bone, other site 05/03/2018 11/14/2018 [facility] Problem 2018-05-03 04:19:57 2018-11-14 11:13:22 2018-11-14 11:13:22 Ela Del Castillo Unilateral primary osteoarthritis, right knee Unilateral primary osteoarthritis, right knee 06/25/2017 09/28/2017 [facility] Jeison Problem 2017-06-25 05:59:29 2017-09-28 14:23:44 2017-09-28 14:23:44 Ela Del Castillo Allergies, Adverse Reactions, Alerts Allergy Name Allergy Type Status Severity Reaction(s) Onset Date Inacti ve Date Treating Clinician Comments Source codeine DA Active SV 2018-02-23 00:00:00 [facility] codeine DA Active SV 2018-02-17 00:00:[address] [facility] codeine DA Active SV 2015-06-17 00:00:00 [facility] Penicillin Allergy to substance Active 2013-09-19 00:00:00 [facility] EGGS DA Active U 2008-04-29 00:00:00 [facility] MILK DA Active U 2008-04-29 00:00:00 [facility] No Known Contrast Allergies DA Active U 2008-04-29 00:00: 00 [facility] WHEAT DA Active U 2008-04-29 00:00:00 [facility] CODEINE DA Active U 2008-04-29 00:00:00 [facility] penicillins penicillins Active Ela Del Castillo codeine codeine Active Ela Del Castillo Social History Social Habit Start Date Stop Date Quantity Comments Source Social History 2017-03-02 13:31:10 2017-03-02 13:31:10 Ela Del Castillo Sex Assigned At 1970 00:00:00 1970 00:00:00 Female [facility] Medications Ordered Medication Name Filled Medication Name Start Date Stop Da te Current Medication? Ordering Clinician Indication Dosage Frequency Signature (SIG) Comments Components Source Ketorolac 2017-03-03 23:00:00 No 15 mg, Route: IVP, Q6H, Dosing Weight 66.364, kg, Start date: 03/03/17 18:00:00 CDT, Duration: 6 doses or times, Stop date: 03/05/17 0:00:00 CDT Deya Del Castillo Oxycodone Hydrochloride 5 MG Oral Tablet 2017-03-03 19:00:00 No 10 mg, Route: PO, Drug form: TAB, ONCE, Dosing Weight 66.364, kg, PRN Pain Score 7- 10, Start date: 03/03/17 14:00:00 CDT Me yani Del Castillo Oxycodone Hydrochloride 5 MG Oral Tablet 2017-03-03 18:44:00 No 10 mg, Route: PO, Drug form: TAB, ONCE, Dosing Weight 66.364, kg, PRN Pain Score 7- 10, Start date: 03/03/17 13:44:00 CDT Sd yani Del Castillo Phenergan 2017-03-03 17:02:00 No 12.5 mg, Route: IVPB, Q4H, Dosing Weight 66.364, kg, PRN Nausea & Vomiting, Start date: 03/03/17 12:02:00 CDT, Duration: 30 day, Stop date: 04/02/17 12:01:00 [facility] Hydrom[facility]one 2017-03-03 17:02:00 No 0.3 mg, Route: IVP, Q3H, Dosing Weight 66.364, kg, PRN Pain Score 4-6, Start date: 03/03/17 12:02:00 CDT, Duration: 30 day, Stop date: 04/02/17 12:01:00 CDT [facility] Morphine 2017-03-03 17:02:00 No 2 mg, Route: IVP, Q3H, Dosing Weight 66.364, kg, PRN Pain Score 1-3, Start date: 03/03/17 12:02:00 CDT, Duration: 30 day, Stop date: 04/02/17 12:01:00 CDT Sd yani Del Castillo Acetaminophen 325 MG / Hydrocodone Bitartrate 5 MG Oral Tabl et 2017-03-03 17:02:00 No Route: PO, Dosing Weight 66.364, kg, Q4H, PRN Pain Score 4-6, Start date: 03/03/17 12:02:00 CDT, Duration: 30 day, Stop date: 04/02/17 12:01:00 [facility] Tramadol 2017-03-03 17:02:00 No 50 mg, Route: PO, Drug form: TAB, Q6H, Dosing Weight 66.364, kg, PRN Pain Score 1-3, Start date: 03/03/17 12:02:00 CDT, Duration: 30 day, Stop date: 04/02/17 12:01:00 CDT Ela Del Castillo 72 HR Scopolamine 0.0139 MG/HR Transdermal Patch 2017-03-03 16:0 0:00 No 1 patch, Route: TOP, Drug Fo rm: ERFILM, Dosing Weight 66.364, kg, PRE OP, Start date: 03/03/17 11:00:00 CDT, Duration: 30 day, Stop date: 04/02/17 10:59:00 CDT Ela Del Castillo Albuterol 0.833 MG/ML / Ipratropium [place] 0.167 MG/ML Inha lant Solution 2017-03-03 15:03:00 [...] 30 day, Stop date: 04/02/17 10:02:00 CDT [facility] [address] clindamycin 300 mg oral capsule 2017-03-03 02:35:00 [...] = 1 tab, PO, BID, 0 Refill(s) Deya Del Castillo lamotrigine 100 MG Oral Tablet [Lamictal] 2017-03-02 13:35:00 Yes 100 mg = 1 tab, PO, BID, 0 Refill(s) Kyle Del Castillo rOPINIRole 4 mg oral tablet 2017-03-02 13:35:00 Yes 4 mg = 1 tab, PO, Bedtime, 0 Refill(s) Ela caldwell Acyclovir 400 MG Oral Tablet [Zovirax] 2017-03-02 13:35:00 Yes 400 mg = 1 tab, PO, Daily, 0 Refill(s) Alcides Del Castillo Escitalopram 20 MG Oral Tablet [Lexapro] 2017-03-02 13:34:00 Yes 40 mg = 2 tab, PO, Daily, 0 Refill(s) Alcides Del Castillo Lamotrigine (Lamictal) 100 Mg TAB Lamotrigine (Lamictal) 100 Mg TAB Yes 100 Daily [facility] Lexapro Lexapro Yes 40 Daily [facility] Metformin Hcl (Glucophage) 500 Mg TABLET Metformin Hcl (Glucophage) 500 Mg TABLET Yes 500 Twice A Day [facility] Metoprolol Tartrate Metoprolol Tartrate Yes 25 Twice A Day [facility] Vital Signs Vital Name Observation Time Observation Value Comments Source Body Temperature 2020-03-13 14:09:00 98.9 [degF] [facility] Weight 2020-03-13 11:57:00 152 [lb_av] [facility] BMI (Body Mass Index) 2020-03-13 11:57:00 23.8 kg/m2 [facility] Systolic (mm Hg) 2017-03-03 19:45:00 Angel Del Castillo Diastolic (mm Hg) 2017-03-03 19:45:00 Kyle Del Castillo Systolic (mm Hg) 2017-03-03 18:30:00 [facility] Diastolic (mm Hg) 2017-03-03 18:30:00 [facility] Systolic (mm Hg) 2017-03-03 18:15:00 [facility] [place] Diastolic (mm Hg) 2017-03-03 18:15:00 [facility] [place] Respitory Rate 2017-03-03 18:15:00 [facility] Respitory Rate 2017-03-03 18:00:00 [facility] [place] Respitory Rate 2017-03-03 17:45:00 [facility] [place] Heart Rate 2017-03-03 15:06:00 [facility] [place] Temperature Oral (F) 2017-03-02 13:19:00 98.2 F [facility] [place] Heart Rate 2017-03-02 13:19:00 [facility] [place] Weight 2017-03-02 13:13:00 [facility] BMI Calculated 2017-03-02 13:13:00 [facility] Height 2017-03-02 13:13:00 157.48 cm [facility] Procedures Procedure Date / Time Performed Performing Clinician Sherif e Cholecystectomy<sup>1</sup> Angel [facility] Colonoscopy<sup>2</sup> [facility] Esophagogastroduodenoscopy<sup>3</sup> [facility] Oophorectomy<sup>4</sup> [facility] Operation<sup>5</sup> [facility] Plan of Care Planned Activity Planned Date Details Comments Source Instructions COVID-19: 08/20/2019 [facility] Encounters Start Date/Time End Date/Time Encounter Type Admission Type Attendi [facility] Care Department Encounter ID Source 2018-04-26 12:55:00 2018-04-26 23:59:00 Outpatient Tatianna Holcomb [facility] [id number] 2017-05-24 08:00:00 2017-06-22 23:59:00 Outpatient Tyler Man [id number] 2017-04-21 12:00:00 2017-05-20 23:59:00 Outpatient Tyler Man [id number] 2017-03-17 08:00:00 2017-04-15 23:59:00 Outpatient Tyler Man [id number] 2017-03-03 09:20:00 2017-03-03 14:55:00 Outpatient Khang Man [facility] [id number] Results Test Description Test Time Test Comments Results Result Comments Source KNEE RIGHT THREE VIEWS 2020-03-13 13:32:00 [place] [address] Patient Name: ISMAEL REEDER MR #: [id number] : 1970 Age/Sex: 49/F Req #: [id number] Adm Physician: Ordered by: Adina Hardwick MD Report #: [id number] Location: ER Room/Bed: Procedure: [id number] DX/KNEE RIGHT THREE VIEWS Exam Date: 03/13/20 Exam Time: 1200 REPORT STATUS: Signed Right knee, 3 views INDICATION: Y R knee pain Comparison: None available. Discussion: Multiple views of the right knee demonstrate postoperative changes from 2 part cemented right knee arthroplasty. Patellofemoral spacer is noted. Question small suprapatellar joint effusion. Anatomic alignment of the arthroplasty is noted. Adjacent osseous structures are negative for grossly displaced fracture or dislocation. IMPRESSION: Postoperative changes from right knee arthroplasty. No evidence of hardware malfunction. Small suprapatellar joint effusion is noted, nonspecific. Signed by: Taryn Lewis MD on 03/13/2020 1:33 PM Dictated By: TARYN LEWIS MD [id number] Transcribed By: JUNAID on 03/13/20 1333 COPY TO: ADINA HARDWICK MD SCR MAMM BILATERAL YULIYA CAD DIGITAL 2019-04-26 10:53:31 - SCR MAMM BILATERAL YULIYA CAD DIGITALBILATERAL DIGITAL SCREENING MAMMOGRAM 3D/2D WITH CAD: 04/26/2019CLINICAL: Asymptomatic. Digital breast tomosynthesis was performed in addition to routine CC and MLO views. Current mammographic images were evaluated by either a [employer] M-Vu or a [employer] ImageChecker CAD (computer aided detection system). Comparison is made to exams dated 04/20/2018 mammogram - [facility]-, 04/08/2017 mammogram, and 04/20/2016 mammogram - [facility]-. The tissue of both breasts is predominantly fatty. There is a biopsy clip in the left breast. No suspicious mass, architectural distortion, malignant type calcification, or lymph node abnormality detected. Breast architecture is stable compared to prior exams.IMPRESSION: BENIGNThere is no mammographic evidence of malignancy. Resume annual screening mammography in one year. Christopher Edwards M.D. qn/penrad:04/26/2019 10:53:31 Milieu Therapist: Ami WERNER, [facility]-letter sent: BIRADS 1-2 Normal Mammogram BI-RADS: 2 Benign SCR MAMM BILATERAL YULIYA CAD DIGITAL 2018-04-20 10:46:27 - SCR MAMM BILATERAL YULIYA CAD DIGITALBILATERAL DIGITAL SCREENING MAMMOGRAM 3D/2D WITH CAD: 04/20/2018CLINICAL: Asymptomatic. Digital breast tomosynthesis was performed in addition to routine CC and MLO views. Current mammographic images were evaluated by either a [employer] M-Vu or a [employer] ImageChecker CAD (computer aided detection system). Comparison is made to exams dated 04/08/2017 mammogram, mammogram, and 03/15/2015 mammogram - [facility]-. The tissue of both breasts is predominantly fatty. There is a biopsy clip in the left breast. No suspicious mass, architectural distortion, malignant type calcification, or lymph node abnormality detected. Breast architecture is stable compared to prior exams.IMPRESSION: NEGATIVEThere is no mammographic evidence of malignancy. Resume annual screening mammography in one year. Jonny gresham/gerard:04/20/2018 10:46:27 Entry: cp - 04/25/2018 11:27:28Imaging Technologist: Mandie Ham, [facility]- RGletter sent: BIRADS 1-2 Normal Mammogram BI-RADS: 1 Negative ELECTROLYTES 2017-03-02 13:58:00 11.3 [facility] ELECTROLYTES 2017-03-02 13:58:00 105 [facility] [place] ELECTROLYTES 2017-03-02 13:58:00 107 [facility] [place] ELECTROLYTES 2017-03-02 13:58:00 4.3 [facility] ELECTROLYTES 2017-03-02 13:58:00 30 [facility] [place] ELECTROLYTES 2017-03-02 13:58:00 9.2 [facility] ELECTROLYTES 2017-03-02 13:58:00 19 [facility] [place] ELECTROLYTES 2017-03-02 13:58:00 117 [facility] [place] ELECTROLYTES 2017-03-02 13:58:00 144 [facility] ELECTROLYTES 2017-03-02 13:58:00 0.70 [facility] [place] HEMATOLOGY 2017-03-02 13:58:00 7.4 [facility] HEMATOLOGY 2017-03-02 13:58:00 316 [facility] [place] HEMATOLOGY 2017-03-02 13:58:00 Test Item MCH (test code = MCH) 29.6 pg 27.0-31.0 [facility] RybjpxfFYAMWJUFUW7530-16-82 13:58:0017.2[facility] 2017-03-02 13:58:0032.7[facility] QidxyegGFSPXBLKFO2288-97-90 13:58:0090.5[facility] OrmargtSXMZEXWYXN3894-05-77 13:58:0035.9[facility] OljtrjzDSEWWVNYCZ6216-37-83 13:58:0011.7[facility] KanlvuqYNZMMRLWTI0185-04-87 13:58:003.97[facility] MSHKYQWXBV4918-90-68 13:58:006.2[facility] YxqmidbJAUZAUXNBA3908-89-92 13:58:000.2 [facility] SimhlzqUZNRJEBNEZ4367-31-64 13:58:000.7[facility]ann[facility]MATOLOGY 2017-03-02 13:58:000.6[facility] XbcteehNZMKPWKNOX1100-52-29 13:58:003.7[facility] GbharagIULEEQTNQR9701-76-51 13:58:009.2[facility] XdovstxUILNIZZAYT0667-35-69 13:58:002.1[facility] TxerpiwGLBJKAZIPQ9590-58-72 13:58:003.2[facility] PFDTPISKBI8182-37-69 13:58:0034.4[facility] DzsmsedBAGSGLLYEE8021-76-08 13:58:00 52.0[facility]
--- OUTSIDE RECORDS SUMMARY | 2020-03-19 17:28 | XMS REPORT | Continuity of Care Document ---
Author Author Ela Del Castillo [employer] ISMAEL Bernard [employer] Address Unknown Phone Unavailable Care Team Providers Care Stress Test Technician Name Role Phone [employer] Unavailable Un available Problems Problem Status Onset Date Classification Date Reported Comments Source Other specified disorders of bone, other site 05/03/2018 11/14/2018 [facility] DX: FRONTAL HAIRLINE NODULE Ac tive 04/21/2018 [facility] Unilateral primary osteoarthritis, right knee 06/25/2017 09/28/2017 [facility] [place] RIGHT KNEE Active 03/03/2017 [facility] [place] UNK Active 0 02/25/2017 [facility] ACUTE MENISCAL TEAR, MEDIAL Ac tive 12/17/2011 [facility] Stiffness of right knee, not elsewhere classified 09/28/2017 [facility] [place] Pain in right knee 09/28/2017 [facility] [place] Muscle weakness (generalized) 09/28/2017 [facility] [place] Unspecified abnormalities of gait and mobility 09/28/2017 [facility] [place] Unsteadiness on feet 09/28/2017 [facility] Chondromalacia patellae, right knee 09/28/2017 [facility] [place] Anxiety (finding) Active Problem 11/14/2018 [facility] [place] Gastroesophageal reflux disease (disorder) Active Problem 11/14/2018 [facility] [place] Depressive disorder (disorder) Active Problem 04/2019 [facility] [place] Medications Medication Details Route Status Patient Instructions Ordering Provider Order Date Source Ketorolac 15 mg, Route: IVP, Q 6H, Dosing Weight 66.364, kg, Start date: 03/03/17 18:00:00 CDT, Duration: 6 doses or times, Stop date: 03/05/17 0:00:00 CDT Inactive 03/03/2017 [facility] Oxycodone Hydrochloride 5 MG Oral Tablet 10 mg, Route: PO, Drug form: TAB, ONCE, Dosing Weight 66.364, kg, PRN Pain Score 7-10, Start date: 03/03/17 14:00:00 CDT Inactive 03/03/2017 [facility] Oxycodone Hydrochloride 5 MG Oral Tablet 10 mg, Route: PO, Drug form: TAB, ONCE, Dosing Weight 66.364, kg, PRN Pain Score 7-10, Start date: 03/03/17 13:44:00 CDT Inactive 03/03/2017 [facility] Phenergan 12.5 mg, Route: IVPB , Q4H, Dosing Weight 66.364, kg, PRN Nausea & Vomiting, Start date: 03/03/17 12:02:00 CDT, Duration: 30 day, Stop date: 04/02/17 12:01:00 CDT Inactive 03/03/2017 [facility] Hydromorphone 0.3 mg, Route: I DIE BARBER, Q3H, Dosing Weight 66.364, kg, PRN Pain Score 4-6, Start date: 03/03/17 12:02:00 CDT, Duration: 30 day, Stop date: 04/02/17 12:01:00 CDT Inactive 03/03/2017 [facility] Morphine 2 mg, Route: IVP, Q3H , Dosing Weight 66.364, kg, PRN Pain Score 1-3, Start date: 03/03/17 12:02:00 CDT, Duration: 30 day, Stop date: 04/02/17 12:01:00 CDT Inactive 03/03/2017 [facility] Acetaminophen 325 MG / Hydrocodone Jeremiah trate 5 MG Oral Tablet Route: PO, Dosing Weight 66.364, kg, Q4H , PRN Pain Score 4-6, Start date: 03/03/17 12:02:00 CDT, Duration: 30 day, Stop date: 04/02/17 12:01:00 CDT Inactive 03/03/2017 [facility] Tramadol 50 mg, Route: PO, Torin g form: TAB, Q6H, Dosing Weight 66.364, kg, PRN Pain Score 1-3, Start date: 03/03/17 12:02:00 CDT, Duration: 30 day, Stop date: 04/02/17 12:01:00 CDT Inactive 03/03/2017 [facility] 72 HR Scopolamine 0.0139 MG/HR Transdermal Patch 1 patch, Route: TOP, Drug Form: ERFILM, Dosing Weight 66.364, kg, PRE OP, Start date: 03/03/17 11:00:00 CDT, Duration: 30 day, Stop date: 04/02/17 10:59:00 CDT Inactive 03/03/2017 [facility] Albuterol 0.833 MG/ML / Ipratropium Brom nuno 0.167 MG/ML Inhalant Solution 3 mL, Route: NEB, Dosing Weight 66.364, kg, ONCE, STAT, Start date: 03/03/17 10:03:00 CDT, Stop date: 03/03/17 10:03:00 CDT Inactive 03/03/2017 [facility] Calcium Chloride 0.0014 MEQ/ML / Potassi um Chloride 0.004 MEQ/ML / Sodium Chloride 0.103 MEQ/ML / Sodium Lactate 0.028 MEQ/ML Injectable Solution 1,000 mL, Rate: 25 ml/hr, Infuse over: 4 0 hr, Route: IV, Dosing Weight 66.364 kg, Total Volume: 1,000, Start date: 03/03/17 10:03:00 CDT, Duration: 30 day, Stop date: 04/02/17 10:02:00 CDT Inactive 03/03/2017 [facility] clindamycin 300 mg oral capsule 600 mg = 2 cap, PO, TID, X 14 day, # 84 cap, 0 Refill(s) Active 03/03/2017 [facility] Sucralfate 100 MG/ML Oral Suspension [Carafate] 1 gm = 10 mL, PO, QID-Before Meals, 0 Refill(s) Active 03/02/2017 [facility] Metformin hydrochloride 1000 MG Oral Tablet 1,000 mg = 1 tab, PO, BID, 0 Refill(s) Active 03/02/2017 [facility] lamotrigine 100 MG Oral Tablet [Lamictal] 100 mg = 1 tab, PO, BID, 0 Refill(s) Active 03/02/2017 [facility] rOPINIRole 4 mg oral tablet 4 mg = 1 tab, PO, Bedtime, 0 Refill(s) Active 03/02/2017 [facility] Acyclovir 400 MG Oral Tablet [Zovirax] 400 mg = 1 tab, PO, Daily, 0 Refill(s) Active 03/02/2017 [facility] Escitalopram 20 MG Oral Tablet [Lexapro] 40 mg = 2 tab, PO, Daily, 0 Refill(s) Active 03/02/2017 [facility] Allergies, Adverse Reactions, Alerts Substance Category Reaction Severity Reaction type Status Date Reported Comments Source penicillins Assertion Drug allergy Active [facility] codeine Assertion Drug allergy Active [facility] Immunizations No Data Provided for This Section Results Order Name Results Value Reference Range Date Interpretation Comments Source ELECTROLYTES AGAP 11.3 10.0 - 20.0 03/02/2017 [facility] ELECTROLYTES eGFR 105 03/02/2017 Result Comment: The [...] should be multiplied by the estimated BMI. [facility] ELECTROLYTES Chloride Lvl 107 95 - 109 03/02/2017 [facility] ELECTROLYTES Potassium Lvl 4.3 3.5 - 5.1 03/02/2017 [facility] ELECTROLYTES CO2 30 24 - 32 03/02/2017 [facility] ELECTROLYTES Calcium Lvl 9.2 8.5 - 10.5 03/02/2017 [facility] ELECTROLYTES BUN 19 7 - 22 03/02/2017 [facility] ELECTROLYTES Glucose Lvl 117 70 - 99 03/02/2017 [facility] ELECTROLYTES Sodium Lvl 144 135 - 145 03/02/2017 [facility] ELECTROLYTES Creatinine Lvl 0.7 0 0.50 - 1.40 03/02/2017 [facility] HEMATOLOGY MPV 7.4 7.4 - 10.4 03/02/2017 [facility] HEMATOLOGY Platelet 316 133 - 450 03/02/2017 [facility] HEMATOLOGY MCH 29.6 27.0 - 31.0 03/02/2017 [facility] HEMATOLOGY RDW 17.2 11.5 - 14.5 03/02/2017 [facility] HEMATOLOGY MCHC 32.7 32.0 - 36.0 03/02/2017 [facility] MCV 90.5 80.0 - 98.0 03/02/2017 [facility] Hct 35.9 36.0 - 48.0 03/02/2017 [facility] Hgb 11.7 12.0 - 16.0 03/02/2017 [facility] RBC 3.97 4.20 - 5.40 03/02/2017 [facility] WBC 6.2 3.7 - 10.4 03/02/2017 [facility] Eosinophils # 0.2 0.0 - 0.5 03/02/2017 [facility] HEMATOLOGY Basophils 0.7 0.0 - 1.0 03/02/2017 [facility] Monocytes # 0.6 0.0 - 0.8 03/02/2017 [facility] Eosinophils 3.7 0.0 - 4.0 03/02/2017 [facility] Monocytes 9.2 2.0 - 12.0 03/02/2017 [facility] Lymphocytes # 2.1 1.0 - 5.5 03/02/2017 [facility] Segs-Bands # 3.2 1.5 - 8.1 03/02/2017 [facility] Lymphocytes 34.4 20.0 - 40.0 03/02/2017 [facility] Segs 52.0 45.0 - 75.0 03/02/2017 [facility] Pathology Reports No Data Provided for This [...] to patient size -Use of iterative reconstruction True Fit ue CT Radiation Dose DLP 673 mGy-cm [...] represents an osteoma. ----- STEPHY: GVIJLinda 04/26/2018 [facility] Consultation Notes No Data Provided for This Section Discharge Summaries No Data Provided for This Section History and Physicals No Data Provided for This Section Vital Signs Vital Sign Value Date Comments Source Systolic (mm Hg) 105 03/03/2017 [facility] Diastolic (mm Hg) 62 03/03/2017 [facility] Systolic (mm Hg) 112 03/03/2017 [facility] Diastolic (mm Hg) 65 03/03/2017 [facility] Systolic (mm Hg) 119 03/03/2017 [facility] Diastolic (mm Hg) 65 03/03/2017 [facility] Respitory Rate 8 03/03/2017 [facility] Respitory Rate 15 03/03/2017 [facility] Respitory Rate 7 03/03/2017 [facility] Heart Rate 82 03/03/2017 [facility] Temperature Oral (F) 98.2 F 03/02/2017 [facility] Heart Rate 82 03/02/2017 [facility] Weight 66.364 03/02/2017 [facility] BMI Calculated 26.76 03/02/2017 [facility] Height 157.48 cm 03/02/2017 [facility] Encounters Location Location Details Encounter Type Encounter Number Reason For Visit Attending Provider ADM Date DC Date Status Source [facility] Outpatient [id number] ACUTE MENISCAL TE AR, MEDIAL KHANG SAM 12/21/2011 Active [facility] [id number] Khang Sam 03/03/2017 03/03/2017 [facility] Therapy Patients [id number] Khang Sam 03/17/2017 04/16/2017 [facility] Patients [id number] Khang Sam 04/21/2017 05/21/2017 [facility] OP Therapy Patients [id number] Khang Sam 05/24/2017 06/23/2017 [facility] Outpatient [id number] Bulmaro Mcqueenikh 04/26/2018 04/27/2018 [facility] Procedures Procedure Code Date Perfomer Comments Source Cholecystectomy<sup>1</sup> 38 [id number] [facility] [place] Colonoscopy<sup>2</sup> 395709 2015; 2016 [facility] Esophagogastroduodenoscopy<sup>3</sup> 49418218 2015; 2016 [facility] Oophorectomy<sup>4</sup> 86201 002 2001 [facility] Operation<sup>5</sup> [id number] plate and screws; 2013 [facility] Operation<sup>6</sup> [id number] 2000 [facility] Operation<sup>7</sup> [id number] 2007 [facility] Assessment and Plan No Data Provided for This Section Plan of Care No Data Provided for This Section Social History Social History Date Source Social History TypeResponse Substance Abuse Use: None. Alcohol Never Smoking Status Never smoker; Exposure to Tobacco Smoke None; Cigarette Smoking Last 365 Days No; Reg Smoking Cessation Counseling No entered on: 03/02/17 03/02/2017 [facility] [place] Social History TypeResponse Substance Abuse Use: None. Alcohol Never Smoking Status Never smoker; Exposure to Tobacco Smoke None; Cigarette Smoking Last 365 Days No; Reg Smoking Cessation Counseling No entered on: 03/02/17 03/02/2017 [facility] Family History No Data Provided for This Section Advance Directives No Data Provided for This Section Functional Status No Data Provided for This Section
[2020-03-19 17:29] LABS: ALANINE AMINOTRANSFERASE 10 IU/L (0-55); ALBUMIN 3.6 g/dL (3.5-5.0); ALBUMIN/GLOBULIN RATIO 1.2 (0.8-2.0); ALKALINE PHOSPHATASE 68 IU/L (40-150); ANION GAP 12.1 mmol/L (8-16); BLOOD UREA NITROGEN 9 mg/dL (7-26); BUN/CREATININE RATIO 13 (6-25); CALCIUM 8.8 mg/dL (8.4-10.2); CARBON DIOXIDE 24 mmol/L (22-29); CHLORIDE 108 mmol/L (98-107); CREATININE, SERUM 0.67 mg/dL (0.57-1.11); EST GLOMERULAR FILTRATION RATE > 60 ML/MIN (60-); GLUCOSE 125 mg/dL (74-118); POTASSIUM 4.1 mmol/L (3.5-5.1); SODIUM 140 mmol/L (136-145)
--- OUTSIDE RECORDS SUMMARY | 2020-03-19 17:31 | XMS REPORT | Continuity of Care Document ---
Author Author [facility] t Organization [facility] Address [address] [place] [address] Phone Unavailable Care Team Providers Care Client Onboarding Analyst Name Role Phone DO WALLACE RAJAN PCP Natalio Hardwick Attphys Unavailable Rony Holcomb Attphys Caleb Man Attphys Payers Payer Name Policy Type Policy Number Effective Date Expiration Date S hans Amaro [facility] [id number] 2020 00:00:00 [facility] Problems Condition Name Condition Details Condition Category Status Onset Date Resolution Date Last Treatment Date Treating Clinician Comments Source DX: FRONTAL HAIRLINE NODULE DX : FRONTAL HAIRLINE NODULE Active 04/21/2018 [facility] Active 2018-04-21 00:00:00 2018-04-26 13:02:00 [facility] RIGHT KNEE RIGH T KNEE Active 03/03/2017 [facility] Active 2017-03-03 08:00:00 2017-05-24 17:24:00 [facility] UNK UNK Active 02/25/2017 [facility] Diagnosis Active 2017-02-25 00:00:00 2017-03-03 09:23:00 [facility] ACUTE MENISCAL TEAR, MEDIAL AC [place] MENISCAL TEAR, MEDIAL Active 12/17/2011 [facility] Active 2011-12-17 00:00:00 2011-12-21 18:47:00 [facility] Suspected severe acute respiratory syndr ome coronavirus 2 (SARS-CoV-2) infection Problem Active [facility] Stiffness of right knee, not elsewhere classified Stiffness of right knee, not elsewhere classified 09/28/2017 [facility] Problem 2017-09-28 14:23:44 [facility] Pain in right knee Pain in right knee 09/28/2017 [facility] Problem 2017-09-28 14:23:44 [facility] Muscle weakness (generalized) Muscle weakness (generalized) 09/28/2017 [facility] Problem 2017-09 14:23:44 [facility] Unspecified abnormalities of gait and mobility Unspecified abnormalities of gait and mobility 09/28/2017 [facility] Problem 2017-09-28 14:23:44 [facility] Unsteadiness on feet Unst eadiness on feet 09/28/2017 [facility] Problem 2017-09-28 14:23:44 [facility] Chondromalacia patellae, right knee Chondromalacia patellae, right knee 09/28/2017 [facility] Problem 2017-09-28 14:23:44 [facility] Anxiety (finding) Anxi ety (finding) Active Problem 11/14/2018 [facility] Problem Active 2018-11-14 11:1 3:22 [facility] Gastroesophageal reflux disease (disorder) Gastroesophageal reflux disease (disorder) Active Problem 11/14/2018 [facility] Problem Active 2018-11-14 11:13:22 [facility] Depressive disorder (disorder) Depressive disorder (disorder) Active Problem 11/14/2018 [facility] Problem Active 2018-11-14 11:13:22 Ela Del Castillo Other specified disorders of bone, other site Other specified disorders of bone, other site 05/03/2018 11/14/2018 [facility] Problem 2018-05-03 04:19:57 2018-11-14 11:13:22 2018-11-14 11:13:22 Ela Del Castillo Unilateral primary osteoarthritis, right knee Unilateral primary osteoarthritis, right knee 06/25/2017 09/28/2017 [facility] [place] Problem 2017-06-25 05:59:29 2017-09-28 14:23:44 2017-09-28 14:23:44 Ela Del Castillo Allergies, Adverse Reactions, Alerts Allergy Name Allergy Type Status Severity Reaction(s) Onset Date Inacti ve Date Treating Clinician Comments Source codeine DA Active SV 2018-02-23 00:00:00 [facility] codeine DA Active SV 2018-02-17 00:00:00 [facility] codeine DA Active SV 2015-06-17 00:00:00 [facility] Penicillin Allergy to substance Active 2013-09-19 00:00:00 [facility] EGGS DA Active U 2008-04-29 00:00:00 [facility] MILK DA Active U 2008-04-29 00:00:00 [facility] No Known Contrast Allergies DA Active U 2008-04-29 00:00: 00 [facility] WHEAT DA Active U 2008-04-29 00:00:00 [facility] CODEINE DA Active U 2008-04-29 00:00:00 [facility] penicillins penicillins Active Ela Del Castillo codeine codeine Active Ela Del Castillo Social History Social Habit Start Date Stop Date Quantity Comments Source Social History 2017-03-02 13:31:10 2017-03-02 13:31:10 Ela Del Castillo Sex Assigned At 1970 00:00:00 1970 00:00:00 Female [facility] Medications Ordered Medication Name Filled Medication Name [...] 7- 10, Start date: 03/03/17 13:44:00 CDT Tx yani Del Castillo Phenergan 2017-03-03 17:02:00 No 12.5 mg, Route: IVPB, Q4H, Dosing Weight 66.364, kg, PRN Nausea & Vomiting, Start date: 03/03/17 12:02:00 CDT, Duration: 30 day, Stop date: 04/02/17 12:01:00 CDT [facility] Hydromorphone 2017-03-03 17:02:00 No 0.3 mg, Route: IVP, Q3H, Dosing Weight 66.364, kg, PRN Pain Score 4-6, Start date: 03/03/17 12:02:00 CDT, Duration: 30 day, Stop date: 04/02/17 12:01:00 CDT [facility] Morphine 2017-03-03 17:02:00 No 2 mg, Route: IVP, Q3H, Dosing Weight 66.364, kg, PRN Pain Score 1-3, Start date: 03/03/17 12:02:00 CDT, Duration: 30 day, Stop date: 04/02/17 12:01:00 CDT Tx yani Del Castillo Acetaminophen 325 MG / Hydrocodone Bitartrate 5 MG Oral Tabl et 2017-03-03 17:02:00 No Route: PO, Dosing Weight 66.364, kg, Q4H, PRN Pain Score 4-6, Start date: 03/03/17 12:02:00 CDT, Duration: 30 day, Stop date: 04/02/17 12:01:00 CDT [facility] Tramadol 2017-03-03 17:02:00 No 50 mg, Route: [...] Del Castillo Albuterol 0.833 MG/ML / Ipratropium Bartlett 0.167 MG/ML Inha lant Solution 2017-03-03 15:03:00 [...] 30 day, Stop date: 04/02/17 10:02:[address] [facility] clindamycin 300 mg oral capsule [...] (Lamictal) 100 Mg TAB Yes 100 Daily [facility] Lexapro Lexapro Yes 40 Daily [facility] Metformin Hcl (Glucophage) 500 Mg TABLET Metformin Hcl (Glucophage) 500 Mg TABLET Yes 500 Twice A Day [facility] Metoprolol Tartrate Metoprolol Tartrate Yes 25 Twice A Day [facility] Vital Signs Vital Name Observation Time Observation Value Comments Source Body Temperature 2020-03-13 14:09:00 98.9 [degF] [facility] Weight 2020-03-13 11:57:00 152 [lb_av] [facility] BMI (Body Mass Index) 2020-03-13 11:57:00 23.8 kg/m2 [facility] Systolic (mm Hg) 2017-03-03 19:45:00 Angel Del Castillo Diastolic (mm Hg) 2017-03-03 19:45:00 Kyle Del Castillo Systolic (mm Hg) 2017-03-03 18:30:00 [facility] [place] Diastolic (mm Hg) 2017-03-03 18:30:00 [facility] [place] Systolic (mm Hg) 2017-03-03 18:15:00 [facility] [place] Diastolic (mm Hg) 2017-03-03 18:15:00 [facility] [place] Respitory Rate 2017-03-03 18:15:00 [facility] Respitory Rate 2017-03-03 18:00:00 [facility] [place] Respitory Rate 2017-03-03 17:45:00 [facility] [place] Heart Rate 2017-03-03 15:06:00 [facility] [place] Temperature Oral (F) 2017-03-02 13:19:00 98.2 F [facility] [place] Heart Rate 2017-03-02 13:19:00 [facility] [place] Weight 2017-03-02 13:13:00 [facility] BMI Calculated 2017-03-02 13:13:00 [facility] Height 2017-03-02 13:13:[address] [facility] Procedures Procedure Date / Time Performed Performing Clinician Shreif e Cholecystectomy<sup>1</sup> Angel [facility] Colonoscopy<sup>2</sup> [facility] Esophagogastroduodenoscopy<sup>3</sup> [facility] Oophorectomy<sup>4</sup> [facility] Operation<sup>5</sup> [facility] Plan of Care Planned Activity Planned Date Details Comments Source Instructions COVID-19: 08/20/2019 [facility] Encounters Start Date/Time End Date/Time Encounter Type Admission Type Attendi [facility] Care Department Encounter ID Source 2018-04-26 12:55:00 2018-04-26 23:59:00 Outpatient Tatianna Holcomb [facility] [id number] 2017-05-24 08:00:00 2017-06-22 23:59:00 Outpatient Tyler Man [id number] 2017-04-21 12:00:00 2017-05-20 23:59:00 Outpatient Tyler Man [id number] 2017-03-17 08:00:00 2017-04-15 23:59:00 Outpatient Tyler Man [id number] 2017-03-03 09:20:00 2017-03-03 14:55:00 Outpatient Khang Man [facility] [id number] Results Test Description Test Time Test Comments Results Result Comments Source KNEE RIGHT THREE VIEWS 2020-03-13 13:32:00 [place] [address] Patient Name: ISMAEL REEDER MR #: [id number] : 1970 Age/Sex: 49/F Req #: [id number] Adm Physician: Ordered by: Adina Hardwick MD Report #: [id number] Location: ER Room/Bed: Procedure: [id number] DX/KNEE RIGHT THREE VIEWS Exam Date: 03/13/20 [...] mammographic images were evaluated by either a [employer] M-Vu or a [employer] ImageChecker CAD (computer aided detection system). Comparison is made to exams dated 04/20/2018 mammogram - [facility]-, 04/08/2017 mammogram, and 04/20/2016 mammogram - [facility]-. The tissue of both breasts is predominantly fatty. There is a biopsy clip in the left breast. No suspicious mass, architectural distortion, malignant type calcification, or lymph node abnormality detected. Breast architecture is stable compared to prior exams.IMPRESSION: BENIGNThere is no mammographic evidence of malignancy. Resume annual screening mammography in one year. Christopher Edwards M.D. qn/penrad:04/26/2019 10:53:31 Green End Worker: Ami WERNER, [facility]-letter sent: BIRADS 1-2 Normal Mammogram BI-RADS: 2 Benign SCR MAMM BILATERAL YULIYA CAD DIGITAL 2018-04-20 10:46:27 - SCR MAMM BILATERAL YULIYA CAD DIGITALBILATERAL DIGITAL SCREENING MAMMOGRAM 3D/2D WITH CAD: 04/20/2018CLINICAL: Asymptomatic. Digital breast tomosynthesis was performed in addition to routine CC and MLO views. Current mammographic images were evaluated by either a [employer] M-Vu or a [employer] ImageChecker CAD (computer aided detection system). Comparison is made to exams dated 04/08/2017 mammogram, mammogram, and 03/15/2015 mammogram - [facility]-. The tissue of both breasts [...] - 04/25/2018 11:27:28Imaging Technologist: Mandie Ham, [facility]- RGletter sent: BIRADS 1-2 Normal Mammogram BI-RADS: 1 Negative ELECTROLYTES 2017-03-02 13:58:00 11.3 [facility] ELECTROLYTES 2017-03-02 13:58:00 105 [facility] [place] ELECTROLYTES 2017-03-02 13:58:00 107 [facility] [place] ELECTROLYTES 2017-03-02 13:58:00 4.3 [facility] ELECTROLYTES 2017-03-02 13:58:00 30 [facility] [place] ELECTROLYTES 2017-03-02 13:58:00 9.2 [facility] [place] ELECTROLYTES 2017-03-02 13:58:00 19 [facility] [place] ELECTROLYTES 2017-03-02 13:58:00 117 [facility] [place] ELECTROLYTES 2017-03-02 13:58:00 144 [facility] ELECTROLYTES 2017-03-02 13:58:00 0.70 [facility] [place] HEMATOLOGY 2017-03-02 13:58:00 7.4 [facility] HEMATOLOGY 2017-03-02 13:58:00 316 [facility] [place] HEMATOLOGY 2017-03-02 13:58:00 Test Item MCH (test code = MCH) 29.6 pg 27.0-31.0 [facility] [id number] 13:58:[facility] 2017-03-02 13:58:0032.7[facility] HarmodfTQXYHSPPFO2264-48-92 13:58:0090.5[facility] YqdvimxZKFCOLUBCO4297-97-39 13:58:0035.9[facility] RbfywkfNICBVRRAVS2782-81-26 13:58:0011.7[facility] AclcqokZAEPFRJTAJ3486-72-55 13:58:003.97[facility] [place] NIOBNPZKYZ6609-62-83 13:58:006.2[facility] YkfcaqfXYOBKUSJUO2987-69-63 13:58:000.2 [facility] FqrrucsMWQMWDOJGO2059-18-35 13:58:000.7[facility] 2017-03-02 13:58:000.6[facility] NmzotksHNCNHOUOHN2384-51-42 13:58:003.7[facility] ZhhtjhzVMHHUTRSOC0622-55-08 13:58:009.2[facility] VyexfxgVGAYKHJRLJ8913-89-96 13:58:002.1[facility] VsrakdsPBLDLNCMFG9990-65-44 13:58:003.2[facility] [place] GQOABUUZSQ9057-73-40 13:58:0034.4[facility] RdxjbqcIGTIWYHBNF6820-07-36 13:58:00 52.0[facility]
--- OUTSIDE RECORDS SUMMARY | 2020-03-19 17:31 | XMS REPORT | Continuity of Care Document ---
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 Phone [employer] Information [employer] Unavailable Un available Problems Problem Status Onset Date Classification Date Reported Comments Source Other specified disorders of bone, other site 05/03/2018 11/14/2018 [facility] DX: FRONTAL HAIRLINE NODULE Ac tive 04/21/2018 [facility] Unilateral primary osteoarthritis, right knee 06/25/2017 09/28/2017 [facility] [place] RIGHT KNEE Active 03/03/2017 [facility] [place] UNK Active 0 02/25/2017 [facility] ACUTE MENISCAL TEAR, MEDIAL Ac tive 12/17/2011 [facility] Stiffness of right knee, not elsewhere classified 09/28/2017 [facility] [place] Pain in right knee 09/28/2017 [facility] [place] Muscle weakness (generalized) 09/28/2017 [facility] [place] Unspecified abnormalities of gait and mobility 09/28/2017 [facility] [place] Unsteadiness on feet 09/28/2017 [facility] Chondromalacia patellae, right knee 09/28/2017 [facility] [place] Anxiety (finding) Active Problem 11/14/2018 [facility] [place] Gastroesophageal reflux disease (disorder) Active Problem 11/14/2018 [facility] [place] Depressive disorder (disorder) Active Problem 04/2019 [facility] [place] Medications Medication Details Route Status Patient Instructions Ordering Provider Order Date Source Ketorolac 15 mg, Route: IVP, Q 6H, Dosing Weight 66.364, kg, Start date: 03/03/17 18:00:00 CDT, Duration: 6 doses or times, Stop date: 03/05/17 0:00:00 CDT Inactive 03/03/2017 [facility] Oxycodone Hydrochloride 5 MG Oral Tablet 10 mg, Route: PO, Drug form: TAB, ONCE, Dosing Weight 66.364, kg, PRN Pain Score 7-10, Start date: 03/03/17 14:00:00 CDT Inactive 03/03/2017 [facility] Oxycodone Hydrochloride 5 MG Oral Tablet 10 mg, Route: PO, Drug form: TAB, ONCE, Dosing Weight 66.364, kg, PRN Pain Score 7-10, Start date: 03/03/17 13:44:00 CDT Inactive 03/03/2017 [facility] Phenergan 12.5 mg, Route: IVPB , Q4H, Dosing Weight 66.364, kg, PRN Nausea & Vomiting, Start date: 03/03/17 12:02:00 CDT, Duration: 30 day, Stop date: 04/02/17 12:01:00 CDT Inactive 03/03/2017 [facility] Hydromorphone 0.3 mg, Route: I CAN OPERATOR, Q3H, Dosing Weight 66.364, kg, PRN Pain Score 4-6, Start date: 03/03/17 12:02:00 CDT, Duration: 30 day, Stop date: 04/02/17 12:01:00 CDT Inactive 03/03/2017 [facility] Morphine 2 mg, Route: IVP, Q3H , Dosing Weight 66.364, kg, PRN Pain Score 1-3, Start date: 03/03/17 12:02:00 CDT, Duration: 30 day, Stop date: 04/02/17 12:01:00 CDT Inactive 03/03/2017 [facility] Acetaminophen 325 MG / Hydrocodone Jeremiah trate 5 MG Oral Tablet Route: PO, Dosing Weight 66.364, kg, Q4H , PRN Pain Score 4-6, Start date: 03/03/17 12:02:00 CDT, Duration: 30 day, Stop date: 04/02/17 12:01:00 CDT Inactive 03/03/2017 [facility] Tramadol 50 mg, Route: PO, Torin g form: TAB, Q6H, Dosing Weight 66.364, kg, PRN Pain Score 1-3, Start date: 03/03/17 12:02:00 CDT, Duration: 30 day, Stop date: 04/02/17 12:01:00 CDT Inactive 03/03/2017 [facility] 72 HR Scopolamine 0.0139 MG/HR Transdermal Patch 1 patch, Route: TOP, Drug Form: ERFILM, Dosing Weight 66.364, kg, PRE OP, Start date: 03/03/17 11:00:00 CDT, Duration: 30 day, Stop date: 04/02/17 10:59:00 CDT Inactive 03/03/2017 [facility] Albuterol 0.833 MG/ML / Ipratropium Brom nuno 0.167 MG/ML Inhalant Solution 3 mL, Route: NEB, Dosing Weight 66.364, kg, ONCE, STAT, Start date: 03/03/17 10:03:00 CDT, Stop date: 03/03/17 10:03:00 CDT Inactive 03/03/2017 [facility] Calcium Chloride 0.0014 MEQ/ML / Potassi um Chloride 0.004 MEQ/ML / Sodium Chloride 0.103 MEQ/ML / Sodium Lactate 0.028 MEQ/ML Injectable Solution 1,000 mL, Rate: 25 ml/hr, Infuse over: 4 0 hr, Route: IV, Dosing Weight 66.364 kg, Total Volume: 1,000, Start date: 03/03/17 10:03:00 CDT, Duration: 30 day, Stop date: 04/02/17 10:02:00 CDT Inactive 03/03/2017 [facility] clindamycin 300 mg oral capsule 600 mg = 2 cap, PO, TID, X 14 day, # 84 cap, 0 Refill(s) Active 03/03/2017 [facility] Sucralfate 100 MG/ML Oral Suspension [Carafate] 1 gm = 10 mL, PO, QID-Before Meals, 0 Refill(s) Active 03/02/2017 [facility] Metformin hydrochloride 1000 MG Oral Tablet 1,000 mg = 1 tab, PO, BID, 0 Refill(s) Active 03/02/2017 [facility] lamotrigine 100 MG Oral Tablet [Lamictal] 100 mg = 1 tab, PO, BID, 0 Refill(s) Active 03/02/2017 [facility] rOPINIRole 4 mg oral tablet 4 mg = 1 tab, PO, Bedtime, 0 Refill(s) Active 03/02/2017 [facility] Acyclovir 400 MG Oral Tablet [Zovirax] 400 mg = 1 tab, PO, Daily, 0 Refill(s) Active 03/02/2017 [facility] Escitalopram 20 MG Oral Tablet [Lexapro] 40 mg = 2 tab, PO, Daily, 0 Refill(s) Active 03/02/2017 [facility] Allergies, Adverse Reactions, Alerts Substance Category Reaction Severity Reaction type Status Date Reported Comments Source penicillins Assertion Drug allergy Active [facility] codeine Assertion Drug allergy Active [facility] Immunizations No Data Provided for This Section Results Order Name Results Value Reference Range Date Interpretation Comments Source ELECTROLYTES AGAP 11.3 10.0 - 20.0 03/02/2017 [facility] ELECTROLYTES eGFR 105 03/02/2017 Result Comment: The [...] should be multiplied by the estimated BMI. [facility] ELECTROLYTES Chloride Lvl 107 95 - 109 03/02/2017 [facility] ELECTROLYTES Potassium Lvl 4.3 3.5 - 5.1 03/02/2017 [facility] ELECTROLYTES CO2 30 24 - 32 03/02/2017 [facility] ELECTROLYTES Calcium Lvl 9.2 8.5 - 10.5 03/02/2017 [facility] ELECTROLYTES BUN 19 7 - 22 03/02/2017 [facility] ELECTROLYTES Glucose Lvl 117 70 - 99 03/02/2017 [facility] ELECTROLYTES Sodium Lvl 144 135 - 145 03/02/2017 [facility] ELECTROLYTES Creatinine Lvl 0.7 0 0.50 - 1.40 03/02/2017 [facility] HEMATOLOGY MPV 7.4 7.4 - 10.4 03/02/2017 [facility] HEMATOLOGY Platelet 316 133 - 450 03/02/2017 [facility] HEMATOLOGY MCH 29.6 27.0 - 31.0 03/02/2017 [facility] HEMATOLOGY RDW 17.2 11.5 - 14.5 03/02/2017 [facility] HEMATOLOGY MCHC 32.7 32.0 - 36.0 03/02/2017 [facility] MCV 90.5 80.0 - 98.0 03/02/2017 [facility] Hct 35.9 36.0 - 48.0 03/02/2017 [facility] Hgb 11.7 12.0 - 16.0 03/02/2017 [facility] RBC 3.97 4.20 - 5.40 03/02/2017 [facility] WBC 6.2 3.7 - 10.4 03/02/2017 [facility] Eosinophils # 0.2 0.0 - 0.5 03/02/2017 [facility] HEMATOLOGY Basophils 0.7 0.0 - 1.0 03/02/2017 [facility] Monocytes # 0.6 0.0 - 0.8 03/02/2017 [facility] Eosinophils 3.7 0.0 - 4.0 03/02/2017 [facility] Monocytes 9.2 2.0 - 12.0 03/02/2017 [facility] Lymphocytes # 2.1 1.0 - 5.5 03/02/2017 [facility] Segs-Bands # 3.2 1.5 - 8.1 03/02/2017 [facility] Lymphocytes 34.4 20.0 - 40.0 03/02/2017 [facility] Segs 52.0 45.0 - 75.0 03/02/2017 [facility] Pathology Reports No Data Provided for This [...] to patient size -Use of iterative reconstruction [employer] ue CT Radiation Dose DLP 673 mGy-cm [...] represents an osteoma. ----- STEPHY: GVIJLinda 04/26/2018 [facility] Consultation Notes No Data Provided for This Section Discharge Summaries No Data Provided for This Section History and Physicals No Data Provided for This Section Vital Signs Vital Sign Value Date Comments Source Systolic (mm Hg) 105 03/03/2017 [facility] Diastolic (mm Hg) 62 03/03/2017 [facility] Systolic (mm Hg) 112 03/03/2017 [facility] Diastolic (mm Hg) 65 03/03/2017 [facility] Systolic (mm Hg) 119 03/03/2017 [facility] Diastolic (mm Hg) 65 03/03/2017 [facility] Respitory Rate 8 03/03/2017 [facility] Respitory Rate 15 03/03/2017 [facility] Respitory Rate 7 03/03/2017 [facility] Heart Rate 82 03/03/2017 [facility] Temperature Oral (F) 98.2 F 03/02/2017 [facility] Heart Rate 82 03/02/2017 [facility] Weight 66.364 03/02/2017 [facility] BMI Calculated 26.76 03/02/2017 [facility] Height 157.48 cm 03/02/2017 [facility] Encounters Location Location Details Encounter Type Encounter Number Reason For Visit Attending Provider ADM Date DC Date Status Source [facility] Outpatient [id number] ACUTE MENISCAL TE AR, MEDIAL KHANG SAM 12/21/2011 Active [facility] [id number] Khang Sam 03/03/2017 03/03/2017 [facility] [place] [facility] [id number] Khang Sam 03/17/2017 04/16/2017 [facility] [place] [facility] [place] [facility] [id number] Khang Sam 04/21/2017 05/21/2017 [facility] [place] [facility] [place] [facility] [id number] Khang Sam 05/24/2017 06/23/2017 [facility] [place] [facility] Outpatient [id number] Bulmaro Mcqueenikh 04/26/2018 04/27/2018 [facility] Procedures Procedure Code Date Perfomer Comments Source Cholecystectomy<sup>1</sup> 38 [id number] [facility] [place] Colonoscopy<sup>2</sup> 837211 2015; 2016 [facility] [place] Esophagogastroduodenoscopy<sup>3</sup> 68728000 2015; 2016 [facility] [place] Oophorectomy<sup>4</sup> 59927 002 2001 [facility] [place] Operation<sup>5</sup> [id number] plate and screws; 2013 [facility] [place] Operation<sup>6</sup> [id number] 2000 [facility] [place] Operation<sup>7</sup> [id number] 2007 [facility] [place] Assessment and Plan No Data Provided for This Section Plan of Care No Data Provided for This Section Social History Social History Date Source Social History TypeResponse Substance Abuse Use: None. Alcohol Never Smoking Status Never smoker; Exposure to Tobacco Smoke None; Cigarette Smoking Last 365 Days No; Reg Smoking Cessation Counseling No entered on: 03/02/17 03/02/2017 [facility] [place] Social History TypeResponse Substance Abuse Use: None. Alcohol Never Smoking Status Never smoker; Exposure to Tobacco Smoke None; Cigarette Smoking Last 365 Days No; Reg Smoking Cessation Counseling No entered on: 03/02/17 03/02/2017 [facility] Family History No Data Provided for This Section Advance Directives No Data Provided for This Section Functional Status No Data Provided for This Section
[2020-03-19 17:32] LABS: BACTERIA,URINE FEW /HPF; RBC,URINE 0-5 /HPF (0-5); YEAST,URINE FEW
--- NOTE | 2020-03-19 17:37 | NUR ---
consent for blood transfusion signed and placed into chart
[2020-03-19 18:04] LABS: CREATINE KINASE MB 0.8 ng/mL (0-5.0)
[2020-03-19] MEDS: ONDANSETRON HCL INJ 2MG/ML 2ML 2 MG/ML VIAL IV PRN ×2 (18:48→22:48)
[2020-03-19] MEDS: MORPHINE SULFATE INJ 4 MG/ML INJ 1ML IV PRN ×2 (18:48→22:48)
[2020-03-19 20:00] VITALS: BP 139/82
--- NOTE | 2020-03-19 20:30 | NUR ---
Patient received via stretcher from ER. AAO x 4. Patient had complaints of abdominal pain (/). Pain medication already administered by ER. Respirations even and non-labored. Blood transfusion in progress; no adverse reaction noted. Admission history obtained. Initial physical assessment performed. Patient oriented to room, call light. visiting policy and plan of care. Patient instructed to call for assistance when needed. Call light within reach.
[2020-03-19] MEDS ORDERED: IBUPROFEN400 MG PO (20:36)
[2020-03-19 20:39] VITALS: BP 139/83
[2020-03-19 21:00] VITALS: BP 141/75
--- NOTE | 2020-03-19 21:40 | NUR ---
Completion of blood transfusion (1 unit). No adverse reaction noted.
[2020-03-19] MEDS ORDERED: AUGMENTIN 875-1 EACH PO (21:42)
[2020-03-19] MEDS ORDERED: LEXAPRO20 MG PO (21:42)
[2020-03-19] MEDS ORDERED: SIMVASTATIN20 MG PO (21:42)
[2020-03-19] MEDS ORDERED: VITAMIN D250 MC1 PO (21:42)
[2020-03-19] MEDS ORDERED: ACYCLOVIR200 MG PO (21:42)
[2020-03-19] MEDS ORDERED: CLONAZEPAM1 MG PO (21:42)
[2020-03-19] MEDS ORDERED: CIPROFLOXACIN250 MG PO (21:42)
[2020-03-19] MEDS ORDERED: ROPINIROLE HCL1 MG PO (21:42)
[2020-03-19] MEDS ORDERED: PANTOPRAZOLE 40 MG 10ML VIAL IV STA (23:56)
[2020-03-20] VITALS: BP 126/68
[2020-03-20] MEDS ORDERED: PANTOPRAZOL 40MG/SOD CHL 0.9% 50 ML IV SCH
--- NOTE | 2020-03-20 00:50 | NUR ---
Dr. Charlene Woodall here to see patient. New order received for EGD. Patient instructed about NPO status. Patient verbalized understanding. Disclosure and Consent form voluntarily signed.
--- NOTE | 2020-03-20 02:16 | NUR ---
Second unit of blood transfusion completed. No adverse reaction noted.
[2020-03-20 02:19] LABS: CREATINE KINASE MB 0.6 ng/mL (0-5.0)
[2020-03-20 04:00] VITALS: BP 134/98
[2020-03-20 05:17] LABS: BASOPHILS % 0.5 % (0.0-1.0); EOSINOPHILS # (AUTO) 0.1 (0.0-0.4); HEMATOCRIT 25.1 % (34.2-44.1); HEMOGLOBIN 7.4 g/dL (12.0-16.0); LYMPHOCYTES # (AUTO) 1.5 (1.0-3.2); LYMPHOCYTES % 23.9 % (18.0-39.1); MEAN CORPUSCULAR HEMOGLOBIN 22.8 pg (28-32); MEAN CORPUSCULAR HGB CONC 29.5 g/dL (31-35); MEAN CORPUSCULAR VOLUME 77.5 fL (81-99); MONOCYTES # (AUTO) 0.5 (0.2-0.8); MONOCYTES % 8.4 % (4.4-11.3); NEUTROPHILS # (AUTO) 4.1 (2.1-6.9); NEUTROPHILS % 64.6 % (38.7-80.0); PLATELET COUNT 320 x10e3/uL (140-360); RED BLOOD COUNT 3.24 x10e6/uL (3.6-5.1); RED CELL DISTRIBUTION WIDTH 17.8 % (11.7-14.4)
[2020-03-20] MEDS: MORPHINE SULFATE INJ 4 MG/ML INJ 1ML IV PRN ×4 (05:30→23:45)
[2020-03-20] MEDS: ONDANSETRON HCL INJ 2MG/ML 2ML 2 MG/ML VIAL IV PRN ×4 (05:31→23:49)
[2020-03-20] MEDS ORDERED: SODIUM CHLORIDE 0.9% 250ML 250 ML ONE (05:32)
[2020-03-20 05:42] LABS: ALANINE AMINOTRANSFERASE 8 IU/L (0-55); ALBUMIN 3.1 g/dL (3.5-5.0); ALBUMIN/GLOBULIN RATIO 1.1 (0.8-2.0); ALKALINE PHOSPHATASE 63 IU/L (40-150); ANION GAP 10.9 mmol/L (8-16); BLOOD UREA NITROGEN 9 mg/dL (7-26); BUN/CREATININE RATIO 13 (6-25); CALCIUM 8.2 mg/dL (8.4-10.2); CARBON DIOXIDE 25 mmol/L (22-29); CHLORIDE 109 mmol/L (98-107); CREATININE, SERUM 0.68 mg/dL (0.57-1.11); EST GLOMERULAR FILTRATION RATE > 60 ML/MIN (60-); GLUCOSE 128 mg/dL (74-118); POTASSIUM 3.9 mmol/L (3.5-5.1); SODIUM 141 mmol/L (136-145)
[2020-03-20 06:00] LABS: % IRON SATURATION 25 % (15-50); IRON 103 ug/dL (50-170); TOTAL IRON BINDING CAPACITY 417 ug/dL (261-478); TRANSFERRIN 298 mg/dL (180-382)
--- NOTE | 2020-03-20 06:47 | NUR ---
Shift report given to coming nurse regarding patient's status.
--- NOTE | 2020-03-20 07:00 | NUR ---
RECEIVED BEDSIDE SHIFT REPORT WITH THE OFF GOING NIGHT NURSE. PATIENT IN STABLE CONDITION, NO S/S OF DISTRESS NOTED. RESPIRATIONS EVEN AND NONLABORED. PATIENT ABLE TO VOICE NEEDS. TELEMETRY APPLIED. IV SITE ASYMPTOMATIC AND PATENT, TRANSPARENT DRESSING C/D/I. BED IN LOWEST POSITION AND LOCKED, SIDE RAILS X 2, NONSKID SOCKS APPLIED. CALL LIGHT WITHIN REACH.
[2020-03-20 07:48] VITALS: BP 134/69
[2020-03-20 08:00] VITALS: BP 134/69
[2020-03-20 09:26] LABS: CREATINE KINASE 37 IU/L (29-168)
[2020-03-20 09:32] LABS: CREATINE KINASE MB < 1.00 ng/mL (0-4.3)
[2020-03-20] MEDS ORDERED: ACETAMINOPHEN 325 MG TAB PO PRN (09:45)
[2020-03-20] MEDS ORDERED: DEXTROSE 50% SYRINGE 50 ML IV PRN (10:30)
--- NOTE | 2020-03-20 10:30 | NUR ---
PATIENT OFF THE UNIT @ 1030 VIA STRETCHER TO THE OR FOR EGD. PATIENT LEFT THE UNIT IN STABLE CONDITION, NO S/S OF DISTRESS NOTED. PATIENT ABLE TO VOICE NEEDS. VITAL SIGNS STABLE.
[2020-03-20] MEDS: SUCRALFATE 1 GM TAB PO SCH ×3 (11:30→19:30)
[2020-03-20] MEDS: PANTOPRAZOLE 40 MG 10ML VIAL IV SCH ×2 (11:30→23:32)
[2020-03-20] MEDS: INSULIN LISPRO 100 UNIT/1 ML 3ML VIAL SQ SCH ×3 (11:30→21:00)
[2020-03-20] MEDS ORDERED: LIDOCAINE HCL 2% LOCAL INJ 5 ML SDV VIAL INJ ONE (11:55)
[2020-03-20] MEDS ORDERED: PROPOFOL IV EMULSION 10 MG/ML 20 ML VIAL ONE (11:55)
--- NOTE | 2020-03-20 12:00 | NUR ---
PATIENT ARRIVED BACK TO THE UNIT @ 1134 FROM THE OR. PATIENT IN STABLE CONDITION, NO S/S OF DISTRESS NOTED. RESPIRATIONS EVEN AND NONLABORED. PATIENT ABLE TO VOICE NEEDS. TELEMETRY APPLIED. VITAL SIGNS STABLE.
--- NOTE | 2020-03-20 13:35 | Operative Report ---
DATE OF PROCEDURE: 03/20/2020 SURGEON: Jaciel Woodall MD PROCEDURE: EGD with biopsies. INDICATIONS FOR EGD: Upper abdominal pain, anemia, history of melena. MEDICATIONS: The patient was done under MAC, please see anesthesiologist's note. PROCEDURE IN DETAIL: With the patient in the left lateral decubitus position, a flexible fiberoptic Olympus gastroscope was introduced into the esophagus under direct visualization without any difficulty. The esophagus appeared to be within normal limits. The scope was then advanced with ease into the stomach. The patient appears to be status post Grace-en-Y. Anastomosis was somewhat nodular and that was biopsied. It was approximately 6 cm distal to the GE junction. Approximately 3 marginal ulcers were noted with the largest approximately 1 cm without active bleeding or stigmata of recent hemorrhage. The efferent loop was intact. The scope was then retroflexed and postoperative changes were noted. The scope was then straightened out, it was subsequently withdrawn, and the patient tolerated the procedure well. IMPRESSION: 1. Normal esophagus. 2. Status post Grace-en-Y, anastomosis intact, nodular, biopsied. 3. Marginal ulcers x3 without active bleeding or stigmata of recent hemorrhage. PLAN: Follow up histology. Continue PPI therapy. Add Carafate 1 g p.o. before meals t.i.d. and at bedtime. Jaciel Woodall MD [facility]/SHERRI /[id number] cc: Slava Workman MD
[2020-03-20] MEDS ORDERED: MIDAZOLAM HCL 2 MG/2 ML VIAL ONE (14:44)
[2020-03-20] MEDS ORDERED: FENTANYL CITRATE/PF 100MCG/2 ML INJ ONE (14:44)
[2020-03-20 16:00] VITALS: BP 123/80
--- NOTE | 2020-03-20 19:09 | NUR ---
SBAR received at bedside, patient in conference currently with doctor, AOx3, stable, no distress, pt report pain level WNR, ORIENTED TO ONCOMING STAFF, CALL LIGHT WITHIN REACH, PLAN OF CARE DISCUSSED
--- NOTE | 2020-03-20 19:32 | NUR ---
COMPLETED BEDSIDE SHIFT REPORT AND ROUNDING WITH ONCOMING NIGHT NURSE. PATIENT IN STABLE CONDITION, NO S/S OF DISTRESS NOTED. RESPIRATIONS EVEN AND NONLABORED. PATIENT ABLE TO VOICE NEEDS. TELEMETRY APPLIED. IV SITE ASYMPTOMATIC AND PATENT, TRANSPARENT DRESSING C/D/I. BED IN LOWEST POSITION AND LOCKED, SIDE RAILS X 2, NONSKID SOCKS APPLIED. CALL LIGHT WITHIN REACH.
[2020-03-20 20:00] VITALS: BP 125/77
[2020-03-21] VITALS (10 sets, daily range): BP systolic 118–152; BP diastolic 67–95
[2020-03-21] MEDS: MORPHINE SULFATE INJ 4 MG/ML INJ 1ML IV PRN ×3 (04:50→16:05)
[2020-03-21] MEDS: ONDANSETRON HCL INJ 2MG/ML 2ML 2 MG/ML VIAL IV PRN ×3 (04:50→16:05)
[2020-03-21 05:03] LABS: BASOPHILS % 0.4 % (0.0-1.0); EOSINOPHILS # (AUTO) 0.1 (0.0-0.4); EOSINOPHILS % 1.7 % (0.0-6.0); HEMATOCRIT 24.7 % (34.2-44.1); LYMPHOCYTES # (AUTO) 1.2 (1.0-3.2); LYMPHOCYTES % 23.6 % (18.0-39.1); MEAN CORPUSCULAR HEMOGLOBIN 22.2 pg (28-32); MEAN CORPUSCULAR HGB CONC 28.3 g/dL (31-35); MEAN CORPUSCULAR VOLUME 78.2 fL (81-99); MONOCYTES # (AUTO) 0.4 (0.2-0.8); MONOCYTES % 8.3 % (4.4-11.3); NEUTROPHILS # (AUTO) 3.4 (2.1-6.9); NEUTROPHILS % 65.2 % (38.7-80.0); PLATELET COUNT 299 x10e3/uL (140-360); RED BLOOD COUNT 3.16 x10e6/uL (3.6-5.1); RED CELL DISTRIBUTION WIDTH 18.4 % (11.7-14.4)
[2020-03-21 05:23] LABS: ALANINE AMINOTRANSFERASE 9 IU/L (0-55); ALBUMIN/GLOBULIN RATIO 1.1 (0.8-2.0); ALKALINE PHOSPHATASE 63 IU/L (40-150); ANION GAP 11.1 mmol/L (8-16); BLOOD UREA NITROGEN 6 mg/dL (7-26); BUN/CREATININE RATIO 9 (6-25); CALCIUM 8.1 mg/dL (8.4-10.2); CARBON DIOXIDE 23 mmol/L (22-29); CHLORIDE 111 mmol/L (98-107); EST GLOMERULAR FILTRATION RATE > 60 ML/MIN (60-); GLUCOSE 160 mg/dL (74-118); MAGNESIUM 1.8 MG/DL (1.3-2.1); POTASSIUM 4.1 mmol/L (3.5-5.1); SODIUM 141 mmol/L (136-145)
[2020-03-21] MEDS: INSULIN LISPRO 100 UNIT/1 ML 3ML VIAL SQ SCH ×4 (07:30→20:52)
[2020-03-21 07:49] LABS: ANISOCYTOSIS SLIGHT; HYPOCHROMASIA SLIGHT; MICROCYTOSIS SLIGHT; OVALOCYTES FEW; PLATELET ESTIMATE ADEQUATE; PLATELET MORPHOLOGY COMMENT NORMAL; RBC MORPHOLOGY COMMENT ABNORMAL
[2020-03-21] MEDS: SUCRALFATE 1 GM TAB PO SCH ×4 (08:15→20:53)
--- NOTE | 2020-03-21 10:22 | NUR ---
NOTIFIED ABOUT THE HGB BEING 7.0. NO NEW ORDERS RECEIVED.
[2020-03-21] MEDS: PANTOPRAZOLE 40 MG 10ML VIAL IV SCH ×2 (12:04→23:03)
[2020-03-21] MEDS: LAMOTRIGINE 100 MG TAB PO SCH (15:44)
[2020-03-21] MEDS: ESCITALOPRAM OXALATE 10 MG TAB PO SCH (15:44)
[2020-03-21] MEDS: METFORMIN HCL 500 MG TAB PO SCH (17:02)
[2020-03-21] MEDS: METOPROLOL TARTRATE 25 MG TAB PO SCH (17:03)
[2020-03-21] MEDS: IBUPROFEN 600 MG TAB PO SCH ×2 (17:03→23:03)
[2020-03-21 17:21] LABS: HEMATOCRIT 25.8 % (34.2-44.1); HEMOGLOBIN 7.3 g/dL (12.0-16.0)
[2020-03-21] MEDS ORDERED: IBUPROFEN 400 MG TAB PO SCH (18:00)
[2020-03-21] MEDS: CLONAZEPAM 1 MG TAB PO SCH (20:53)
[2020-03-21] MEDS: SIMVASTATIN 20 MG TAB PO SCH (20:53)
[2020-03-21] MEDS: ROPINIROLE HCL 2 MG TAB PO SCH (20:56)
[2020-03-22] VITALS (12 sets, daily range): BP systolic 124–154; BP diastolic 64–79
[2020-03-22] MEDS ORDERED: CYANOCOBALAMIN INJ 1,000 MCG/ML VIAL IM ONE (01:45)
[2020-03-22] MEDS: IBUPROFEN 600 MG TAB PO SCH ×6 (05:23→23:52)
[2020-03-22 06:02] LABS: % IRON SATURATION 4 % (15-50); IRON 16 ug/dL (50-170); TOTAL IRON BINDING CAPACITY 407 ug/dL (261-478); TRANSFERRIN 291 mg/dL (180-382)
[2020-03-22] MEDS ORDERED: IRON SUCROSE 100 MG in SODIUM CHLORIDE 0.9% 100 ML 100 ML IV SCH (07:00)
[2020-03-22 07:05] LABS: HEMATOCRIT 24.3 % (34.2-44.1); HEMOGLOBIN 6.8 g/dL (12.0-16.0)
--- NOTE | 2020-03-22 07:28 | NUR ---
betsy order for 070 obtained, but medication not in patient bin, pharmacy called order time changed to 0800, pharmacy will bring and put in bin, endorsed to next shift to administer as ordered
[2020-03-22] MEDS: INSULIN LISPRO 100 UNIT/1 ML 3ML VIAL SQ SCH ×4 (07:30→21:00)
--- NOTE | 2020-03-22 07:35 | NUR ---
COMPLETED BEDSIDE SHIFT REPORT AND ROUNDING WITH ONCOMING NIGHT NURSE. PATIENT IN STABLE CONDITION, NO S/S OF DISTRESS NOTED. RESPIRATIONS EVEN AND NONLABORED. TELEMETRY IN PLACE, CALL LIGHT WITHIN REACH
--- NOTE | 2020-03-22 07:52 | Progress Note ---
DATE: SUBJECTIVE: A 49-year-old female, who comes in with acute GI bleed. The patient is status post endoscopy. An ulcer was found on upper EGD. Currently, the patient is still feeling tired and not be able to ambulate secondary to tiredness and fatigue. OBJECTIVE: VITAL SIGNS: At this time, temperature is 97.7, pulse of 57, respirations of 18, blood pressure is 138/76, pulse oximetry of 99%. HEENT: Normocephalic, atraumatic. Pupils are reactive. CVS: S1 and S2 normal. Regular rate and rhythm. ABDOMEN: Soft, nontender. EXTREMITIES: No clubbing, no cyanosis, no edema. LABORATORY VALUES: Today's hemoglobin is 7.3, hematocrit 25.8. Chemistries; iron was 16, TIBC of 407, percent saturation of 4, and transferrin of 291. ASSESSMENT AND PLAN: Ms. Opal Grijalva with upper gastrointestinal bleed, status post transfusion. PLAN: Would be to infuse iron today. The patient can check H and H. After the H and H is checked, if there is an upward trend, the patient can be discharged home. Further recommendation per clinical course. The patient also has iron deficiency anemia of blood loss. MD GEENA Dyer/SHERRI /[id number]
--- NOTE | 2020-03-22 08:00 | NUR ---
RECEIVED PATIENT IN BED. AAOX3. ON TELE #7. PATIENT DENIES PAIN AT THIS TIME. RESPIRATIONS EVEN AND UNLABORED. CALL LIGHT WITHIN REACH. PATIENT INSTRUCTED TO CALL NURSE FOR ASSISTANCE.
--- NOTE | 2020-03-22 08:13 | NUR ---
LEFT MESSAGE WITH ANSWERING SERVICE VAZQUEZ FOR ATTENDING REGARDING CRITICAL LAB HEMOGLOBIN
--- NOTE | 2020-03-22 08:14 | NUR ---
DR. BERGER ADVISED CRITICAL LAB HEMOGLOBIN . 1 UNIT RBC TRANSFUSION AND VENOFER ORDERED.
[2020-03-22] MEDS ORDERED: SODIUM CHLORIDE 0.9% 250ML 250 ML IV ONE (08:30)
[2020-03-22] MEDS: METFORMIN HCL 500 MG TAB PO SCH ×2 (08:45→17:00)
[2020-03-22] MEDS: SUCRALFATE 1 GM TAB PO SCH ×4 (08:45→22:12)
[2020-03-22] MEDS: METOPROLOL TARTRATE 25 MG TAB PO SCH ×2 (08:46→17:04)
[2020-03-22] MEDS: LAMOTRIGINE 100 MG TAB PO SCH (08:46)
[2020-03-22] MEDS: ESCITALOPRAM OXALATE 10 MG TAB PO SCH (08:46)
[2020-03-22] MEDS: CYANOCOBALAMIN INJ 1,000 MCG/ML VIAL IM SCH (08:46)
[2020-03-22] MEDS ORDERED: ROPINIROLE HCL 1 MG TAB PO SCH (09:00)
[2020-03-22] MEDS: IRON SUCROSE 100 MG in SODIUM CHLORIDE 0.9% 100 ML 100 ML IV SCH (15:19)
[2020-03-22] MEDS: PANTOPRAZOLE 40 MG 10ML VIAL IV SCH ×2 (15:19→22:09)
--- NOTE | 2020-03-22 19:27 | NUR ---
PATIENT RESTING IN BED. NO C/O PAIN AT THIS TIME. TELE APPLIED. REPORT GIVEN TO ONCOMING NURSE. CALL LIGHT WITHIN REACH.
[2020-03-22] MEDS: MORPHINE SULFATE INJ 4 MG/ML INJ 1ML IV PRN (22:00)
[2020-03-22] MEDS: ROPINIROLE HCL 2 MG TAB PO SCH (22:09)
[2020-03-22] MEDS: SIMVASTATIN 20 MG TAB PO SCH (22:09)
[2020-03-22] MEDS: CLONAZEPAM 1 MG TAB PO SCH (22:09)
[2020-03-23] VITALS: BP 134/75
--- NOTE | 2020-03-23 | NUR ---
Patient rounded and stable.
--- NOTE | 2020-03-23 04:00 | NUR ---
Patient rounded and stable.
[2020-03-23] MEDS: IBUPROFEN 600 MG TAB PO SCH ×2 (05:46→12:02)
[2020-03-23 06:51] LABS: BASOPHILS % 0.6 % (0.0-1.0); EOSINOPHILS # (AUTO) 0.2 (0.0-0.4); EOSINOPHILS % 3.6 % (0.0-6.0); HEMATOCRIT 27.7 % (34.2-44.1); LYMPHOCYTES # (AUTO) 1.2 (1.0-3.2); LYMPHOCYTES % 24.3 % (18.0-39.1); MEAN CORPUSCULAR HEMOGLOBIN 22.7 pg (28-32); MEAN CORPUSCULAR HGB CONC 28.9 g/dL (31-35); MEAN CORPUSCULAR VOLUME 78.7 fL (81-99); MONOCYTES # (AUTO) 0.4 (0.2-0.8); MONOCYTES % 8.5 % (4.4-11.3); NEUTROPHILS # (AUTO) 3.1 (2.1-6.9); NEUTROPHILS % 62.2 % (38.7-80.0); PLATELET COUNT 309 x10e3/uL (140-360); RED BLOOD COUNT 3.52 x10e6/uL (3.6-5.1); RED CELL DISTRIBUTION WIDTH 19.9 % (11.7-14.4)
[2020-03-23] MEDS: INSULIN LISPRO 100 UNIT/1 ML 3ML VIAL SQ SCH ×2 (07:30→11:14)
--- NOTE | 2020-03-23 07:40 | Progress Note ---
DATE: SUBJECTIVE: The patient is a 49-year-old female, who came in with anemia. The patient has had 2 units of PRBCs. The patient currently has no complaints. Did get unit of transfusion yesterday and also iron infusion and vitamin B12 injection. OBJECTIVE: VITAL SIGNS: Today, temperature is 98.2, pulse of 66, respirations of 18, blood pressure is 134/75. HEENT: Normocephalic, atraumatic. Pupils are reactive. CVS: S1 and S2 normal. Regular rhythm. ABDOMEN: Nontender, nondistended. EXTREMITIES: No clubbing, no cyanosis, no edema. LABORATORY VALUES: The patient's white count was 4.97, hemoglobin of 8 and hematocrit of 27.7, up from 6.8 yesterday and 24.3. ASSESSMENT AND PLAN: Ms. Opal Grijalva with: 1. Iron deficiency anemia. The patient can be discharged home with iron tablets. We will get one more infusion today. Continue monitoring her H and H. She is to see her primary care physician less than one week to check the H and H. This has been conveyed to the patient and importance given too. 2. Iron deficiency anemia, again iron tablets. 3. Gastritis and marginal ulcer x3 without active bleeding or stigmata of recent hemorrhage. We will go ahead and discharge the patient on some Carafate. Further recommendation per clinical course. We will continue to monitor the patient and the patient to follow up with GI too and discharge the patient today. MD GEENA Dyer/MODL /[id number]
[2020-03-23 07:57] VITALS: BP 138/66
[2020-03-23] MEDS: CYANOCOBALAMIN INJ 1,000 MCG/ML VIAL IM SCH (08:26)
[2020-03-23] MEDS: IRON SUCROSE 100 MG in SODIUM CHLORIDE 0.9% 100 ML 100 ML IV SCH (08:26)
[2020-03-23] MEDS: METFORMIN HCL 500 MG TAB PO SCH (08:26)
[2020-03-23] MEDS: SUCRALFATE 1 GM TAB PO SCH ×2 (08:26→12:01)
[2020-03-23] MEDS: LAMOTRIGINE 100 MG TAB PO SCH (08:26)
[2020-03-23] MEDS: PANTOPRAZOLE 40 MG 10ML VIAL IV SCH (08:28)
[2020-03-23] MEDS: METOPROLOL TARTRATE 25 MG TAB PO SCH (08:28)
[2020-03-23 09:07] VITALS: BP 138/66
[2020-03-23] MEDS: ESCITALOPRAM OXALATE 10 MG TAB PO SCH (09:15)
[2020-03-23 11:04] VITALS: BP 172/84
--- NOTE | 2020-03-23 12:00 | NUR ---
Discharge education provided. Prescription given along with discharge packet. Verbalized understanding regarding follow-up appointment with primary doctor and Dr. Charlene Woodall. PIV to right hand removed , catheter tip intact, no bleeding noted.
--- NOTE | 2020-03-23 12:40 | NUR ---
Patient is accompanied to the private vehicle with all personal belongings taken.
--- NOTE | 2020-03-30 00:18 | Discharge Summary ---
DISCHARGE DIAGNOSES: 1. GI bleed. 2. Anemia. 3. Peptic ulcer disease. 4. Nonsteroidal use. HISTORY OF PRESENT ILLNESS AND HOSPITAL COURSE: See hospital chart for details. The patient is a lady, who takes a lot of NSAIDs due to osteoarthritis, who presented with GI bleed and found to have a hemoglobin of 5.6 where she had to be transfused. She was hemodynamically stable. She had an EGD done showing peptic ulcer disease, so she was placed on twice a day Protonix. At the time of discharge, she was doing well, so she was instructed to continue with the Protonix, take Tylenol only and avoid all NSAIDs and follow up with PCP in 1 to 2 weeks as well as GI. Please see hospital chart for full details. MD NIKOLAI Carbajal/SHERRI /[id number]
== END 2020-03-23 12:39 | disposition home or self-care (01) | DRG 378 ==
LOC: ER 17:24 → ERHOLD 17:28 → MED/SURG2 20:08
PROVIDERS: ADMIT Internal Medicine; ATTEND Internal Medicine
PROC: 30233N1 Transfusion of Nonautologous Red Blood Cells into Peripheral Vein, Percutaneous Approach (ICD-10-PCS; 2020-03-19)
PROC: 0DB78ZX Excision of Stomach, Pylorus, Via Natural or Artificial Opening Endoscopic, Diagnostic (ICD-10-PCS; principal; 2020-03-20 10:50)
DX: K25.4 Chronic or unspecified gastric ulcer with hemorrhage (principal); K91.89 Other postprocedural complications and disorders of digestive system; D62 Acute posthemorrhagic anemia; M19.90 Unspecified osteoarthritis, unspecified site; I10 Essential (primary) hypertension; E11.9 Type 2 diabetes mellitus without complications; Z11.59 Encounter for screening for other viral diseases; D50.9 Iron deficiency anemia, unspecified; K29.70 Gastritis, unspecified, without bleeding; Z79.1 Long term (current) use of non-steroidal anti-inflammatories (NSAID)
CPT/HCPCS: 36415; 43239; 80053; 81001; 81025; 82550; 82553; 82607; 82728; 82746; 82948; 83540; 83735; 84466; 84484; 85014; 85018; 85025; 85045; 86850; 86900; 86920; 88305; 88312; 99284; J1756; J2001; J2250; J2270; J2405; J3010; J3420; J7050; P9016

== ENCOUNTER → 2024-09-21 | Day surgery (SDC) | payer BC, OTHER ==
[~2024-09-21] MED LIST changes: +ACYCLOVIR200 MG PO; +AUGMENTIN 875-1 EACH PO; +B12 ACTIVE1000 MCG; +BACLOFEN10 MG PO; +CIPROFLOXACIN250 MG PO; +CLONAZEPAM1 MG PO; +FENTANYL CITRATE/PF 100MCG/2 ML INJ ONE; +FERROUS FUMARA324 MG PO; +GLIPIZIDE ER2.5 MG; +HYOSCYAMINE SULFATE 0.5 MG/ML INJ ONE; +IBUPROFEN400 MG PO; +LEXAPRO20 MG PO; +LIDOCAINE HCL 2% LOCAL INJ 5 ML SDV VIAL INJ ONE; +LOSARTAN POTASS25 MG PO; +MELOXICAM7.5 MG PO; +MIDAZOLAM HCL 2 MG/2 ML VIAL ONE; +NEURONTIN100 MG PO; +NITROFURANTOIN100 MG PO; +PANTOPRAZOLE SO40 MG PO; +PROPOFOL IV EMULSION 10 MG/ML 20 ML VIAL ONE; +QUETIAPINE FUMA25 MG PO; +ROPINIROLE HCL1 MG PO; +ROSUVASTATIN CA40 MG; +SIMVASTATIN20 MG PO; +VENLAFAXINE H37.5 M2 PO; +VITAMIN D250 MC1 PO; +ZOLPIDEM TARTRAT5 MG PO
[2024-09-21] MEDS: LACTATED RINGER'S 1,000 ML ONE (14:37)
[2024-09-21 15:04] VITALS: TEMP 97.3
[2024-09-21 15:20] VITALS: BP 144/96; PULSE 96; RESP 16; O2SAT 96
== END | disposition home or self-care (01) ==
LOC: OR 13:55
PROVIDERS: ATTEND Internal Medicine Gastroenterology
DX: D64.9 Anemia, unspecified (principal); K29.50 Unspecified chronic gastritis without bleeding; K21.9 Gastro-esophageal reflux disease without esophagitis; Z98.84 Bariatric surgery status; Z87.11 Personal history of peptic ulcer disease; G47.33 Obstructive sleep apnea (adult) (pediatric); E11.9 Type 2 diabetes mellitus without complications; I10 Essential (primary) hypertension; E78.5 Hyperlipidemia, unspecified; E03.9 Hypothyroidism, unspecified; R05.3 Chronic cough; F41.9 Anxiety disorder, unspecified; F32.A Depression, unspecified; N39.0 Urinary tract infection, site not specified; N13.30 Unspecified hydronephrosis; F43.10 Post-traumatic stress disorder, unspecified; E55.9 Vitamin D deficiency, unspecified; Z88.8 Allergy status to other drugs, medicaments and biological substances; Z01.810 Encounter for preprocedural cardiovascular examination; Z79.84 Long term (current) use of oral hypoglycemic drugs; Z79.899 Other long term (current) drug therapy; Z68.32 Body mass index [BMI] 32.0-32.9, adult
CPT/HCPCS: 36415; 43239; 45378; 82948; 93005; J1980; J2003; J2250; J2704; J3010; J7121

== ENCOUNTER 2025-01-02 09:00 | Outpatient (RCR) | payer OTHER ==
[~2025-01-02 09:00] MED LIST changes: -FENTANYL CITRATE/PF 100MCG/2 ML INJ ONE; -HYOSCYAMINE SULFATE 0.5 MG/ML INJ ONE; -LIDOCAINE HCL 2% LOCAL INJ 5 ML SDV VIAL INJ ONE; -MIDAZOLAM HCL 2 MG/2 ML VIAL ONE; -PROPOFOL IV EMULSION 10 MG/ML 20 ML VIAL ONE
== END 2025-01-03 ==
LOC: PT 09:00
PROVIDERS: ATTEND Orthopaedic Surgery Adult Reconstructive Orthopaedic Surgery
DX: Z47.1 Aftercare following joint replacement surgery (principal); Z96.641 Presence of right artificial hip joint

== ENCOUNTER 2025-01-07 07:46 | Outpatient (RCR) | payer SELFPAY | END 2025-02-03 | LOC: PT 07:46 | PROVIDERS: ATTEND Orthopaedic Surgery Adult Reconstructive Orthopaedic Surgery | DX: Z47.1 Aftercare following joint replacement surgery (principal); Z96.641 Presence of right artificial hip joint; M16.11 Unilateral primary osteoarthritis, right hip ==